=== PATIENT | male | born 1990 | race Caucasian/White ===

== ENCOUNTER 2024-11-03 02:26 | Inpatient (IN) | payer MEDICARE, MEDICAID ==
[~2024-11-03] VITALS: Ht 175.3 cm; Wt 91.0 kg
[2024-11-03] VITALS (35 sets, daily range): BP systolic 111–146; BP diastolic 72–102; PULSE 80–108; RESP 16–20; TEMP 98.6–100.8; O2SAT 15–100
[~2024-11-03 02:26] MED LIST: ALPR1TAB2 PO; CITA20TA3 PO; DIME240C OR; GLAT20KI SC; HYDR-4833 PO; LORA-655 PO; NAP500T PO
[2024-11-03] MEDS ORDERED: MIDAZOLAM HCL 5 MG/ML-1ML VIAL ONE (02:29)
[2024-11-03] MEDS ORDERED: PROPOFOL 100 ML IV ONE (02:29)
[2024-11-03] MEDS ORDERED: ROCURONIUM 10MG/ML 10ML VIAL IV ONE (02:30)
[2024-11-03] MEDS: PROPOFOL 10 MG/ML 20 ML IV ONE (02:37)
[2024-11-03] MEDS: ROCURONIUM 10MG/ML 10ML VIAL IV ONE (02:38)
[2024-11-03] MEDS: PROPOFOL 100 ML IV SCH (03:00)
[2024-11-03] MEDS: MIDAZOLAM HCL 5 MG/ML-1ML VIAL IV ONE ×2 (03:00→03:55)
[2024-11-03] MEDS: levETIRAcetam 1000 mg/100ml 100 ML IV ONE ×2 (03:00)
--- NOTE | 2024-11-03 03:02 | ED.PDOC ---
Altered Mental Status HPI Comments 34-year-old male with PMHx Seizures brought in by EMS presents s/p seizure activity with an ALOC. Per EMS, patient has been out of seizure medication for the past x 3 days and had a tonic clonic seizure that lasted 10 minutes. EMS gave Versed 10mg IV and then patient had an additional seizure and was given another 10mg Versed IV. Patient arrived to the ER and had a third seizure and was given another 10mg of Versed. Patient has blood coming from his mouth due to oral trauma of biting his tongue. Patient was subsequently intubated with Propofol and Rocuronium. Blood sugar at bedside was 128. Patient was also incontinent to urine. No other symptoms or modifying factors present at this time. Chief Complaint: Seizure Time Seen by MD: 02:35 Primary Care Provider: TAWNY Reviewed Notes: Loss Prevention Research Engineer Notes, Medications, Allergies Allergies: Coded Allergies: NO KNOWN ALLERGIES (Unverified , 02/20/12) Home Meds Active Scripts Glatiramer Acetate (Copaxone) 20 Mg/Ml Kit, 20 MG SC DAILY, #1 Prov:TUAN REVELES MD 08/21/13 Citalopram Hydrobromide (CeleXA TABLET) 20 Mg Tb, 20 MG PO DAILY, #1 Prov:TUAN REVELES MD 08/21/13 Naproxen (NAPROSYN TABLET) 500 Mg Tb, 500 MG PO BIDP, #1 Prov:TUAN REVELES MD 08/21/13 Reported Medications Dimethyl Fumarate (TECFIDERA) 240 Mg Cap, 240 MG OR BID, CAP 04/20/15 Alprazolam (Xanax) 1 Mg Tab, 1 MG PO BIDP, #1 08/21/13 Hydrocodone-Acetaminophen (Alex 5/325MG) 1 Tab Tb, 1 TAB PO Q6HP 08/21/13 Lorazepam (Ativan) 0.5 Mg Tab, 0.5 MG PO DAILY 08/16/13 Information Source: Emergency Med Personnel Mode of Arrival: EMS Severity: Severe Timing: Minutes Duration: Since onset Prehospital treatment: Treatment (VERSED 10mg IV x 2) Quality: Decreased Alertness Recent: Other (SEIZURE) History of: Seizure Associated Signs and Symptoms: Seizure Past Medical History PAST MEDICAL HISTORY: Anxiety, Depression, Seizures Surgical History: Denies all surgeries Family History Family History: No family hx of HTN Family History (Other): Sister: Bipolar Maternal Grandmother: Polio Social History Smoker: Non-Smoker Alcohol: Occasionally Drugs: Marijuana Lives In: Home Constitutional: denies: chills, diaphoresis, fatigue, fever, malaise, sweats, weakness, others EENTM: denies: blurred vision, double vision, ear bleeding, ear discharge, ear drainage, ear pain, ear ringing, eye pain, eye redness, hearing loss, mouth pain, mouth swelling, nasal discharge, nose bleeding, nose congestion, nose pain, photophobia, tearing, throat pain, throat swelling, voice changes, others Respiratory: denies: cough, hemoptysis, orthopnea, SOB at rest, shortness of breath, SOB with excertion, stridor, wheezing, others Gastrointestinal: denies: abdomen distended, abdominal pain, blood streaked bowels, constipated, diarrhea, dysphagia, difficulty swallowing, hematemesis, melena, nausea, poor appetite, poor fluid intake, rectal bleeding, rectal pain, vomiting, others Genitourinary: denies: burning, dysuria, flank pain, frequency, hematuria, incontinence, penile discharge, penile sore, pain, testicle pain, testicle swelling, urgency, others Neurological: reports: seizure; denies: dizziness, fainting, headache, left sided numbness, left sided weakness, numbness, paresthesia, pre-existing deficit, right sided numbness, right sided weakness, speech problems, tingling, tremors, weakness, others Musculoskeletal: denies: back pain, gout, joint pain, joint swelling, muscle pain, muscle stiffness, neck pain, others Integumetry: denies: bruises, change in color, change in hair/nails, dryness, laceration, lesions, lumps, rash, wounds, others Allergic/Immunocompromised: denies: Difficulty Healing, Frequent Infections, Hives, Itching, others Hematologic/Lymphatic: denies: anemia, blood clots, easy bleeding, easy bruising, swollen glands, others Endocrine: denies: excessive hunger, excessive sweating, excessive thirst, excessive urination, flushing, intolerance to cold, intolerance to heat, unexplained weight gain, unexplained weight loss, others Psychiatric: denies: anxiety, bipolar disorder, depression, hopeless, panic disorder, schizophrenia, sleepless, suicidal, others Unable to Obtain due to: Altered Mental Status All Other Systems: Reviewed and Negative Physical Exam General Appearance: Moderate Distress, Normal HEENT: NOT DONE Neck: NOT DONE Respiratory: Chest Non-Tender, Lungs Clear, No Accessory Muscle Use, No Respiratory Distress, Normal Breath Sounds Cardiovascular: No Edema, No JVD, No Murmur, No Gallop, Normal Peripheral Pulses, Regular Rate/Rhythm Breast Exam: Deferred Gastrointestinal: No Organomegaly, Non Tender, No Pulsatile Mass, Normal Bowel Sounds, Soft Genitalia: Deferred Pelvic: Deferred Rectal: Deferred Extremities: No calf tenderness, Normal capillary refill, Normal inspection, Normal range of motion, Non-tender, No pedal edema Musculoskeletal : Apperance: Normal Neurologic: mysql developer II-XII nml as Tested, Other (POSTICTAL) Cerebellar Function: Normal Reflexes: Normal Skin: Dry, Normal Color, Warm Lymphatic: No Adenopathy Was a procedure done? Was a procedure done?: Yes Sedation Sedation?: Yes Informed consent obtained: No Sedation start time: 02:40 Sedation end time: 02:41 Sedation total time: 1 minute Central Line Recorder of insertion practice: Observer Occupation of slot tag inserter: Attending Physician Indication: Volume resuscitation Room prepared for procedure: Yes Scout performed hand hygien: Yes Maximal sterile barrier precau: Mask/Eye shield, Sterile gown, Cap, Sterlie gloves, Large sterlie drape Skin Preparation: Chlorhexidine gluconate Skin preparation completely dr: Yes Insertion site: Right, Femoral Central line catheter type: [id number] dialysis Number of lumens: 3 Post Assessment: Proper placement Informed consent obtained: No Risks/benefits/alt described: No Notes PATIENT SEDATED Intubation Indication: Altered Mental Status Prep: Preoxygenation Pretreated with: Sedation Medicated with: Other (PROPOFOL and ROCRUONIUM) Intubation Approach: Orotracheal Intubation size: cm (25) Informed consent obtained: No Risks/benefits/alt described: No Differential Diagnosis (ALOC) Differential Diagnosis: Dehydration, Hypoglycemia, DKA, Encephalopathy, Meningitis, Sepsis, Hypoxemia, Seizure X-Ray, Labs, Meds, VS Vital Signs Date Time Temp Pulse Resp B/P (MAP) Pulse Ox O2 Delivery O2 Flow Rate FiO2 11/03/24 04:00 96/57 11/03/24 04:00 96/57 11/03/24 03:00 91/67 11/03/24 02:51 118 16 113/68 (83) 100 100 11/03/24 02:41 98.7 112 20 173/119 (137) 98 11/03/24 02:40 99.1 108 20 113/68 (83) 100 99.1 11/03/24 02:40 108 20 15 Mechanical Ventilator+ 15 100 100 11/03/24 02:38 113/68 Lab Test 11/03/24 03:00 11/03/24 02:58 11/03/24 02:55 Range/Units Urine Color Light-yellow Yellow Urine Clarity Clear Clear Urine pH 5.5 5.0-9.0 Urine Specific [place] 1.020 1.001-1.035 Urine Protein 1+ H Negative Urine Ketones 1+ H Negative Urine Blood Trace H Negative /uL Urine Nitrite Negative Negative Urine Bilirubin Negative Negative Urine Urobilinogen Normal Negative mg/dL Urine Leukocyte Esterase Negative Negative /uL Urine RBC 3 0 - 3 /hpf Urine WBC 2 0 - 3 /hpf Urine Squamous Epithelial Cells None seen <5 /hpf Urine Amorphous Crystals Few None Seen /hpf Urine Bacteria None seen None Seen /hpf Urine Glucose Normal Normal mg/dL Urine Opiates Screen Neg NEGATIVE Urine Fentanyl Screen Pending Urine Barbiturates Screen Neg NEGATIVE Urine Phencyclidine Screen Neg NEGATIVE Urine Amphetamines Screen Neg NEGATIVE Urine Benzodiazepines Screen Pos NEGATIVE Urine Cocaine Screen Neg NEGATIVE Urine Cannabinoids Screen Pos NEGATIVE Blood Gas Specimen Type Arterial Blood Gas Sample Site Left radial Blood Gas Patient Temperature 37.0 Arterial Blood Date Drawn [id number] Arterial Blood pH 7.280 L 7.350-7.450 Arterial Blood Partial Pressure CO2 48.1 H 35.0-48.0 mmHg Arterial Blood Partial Pressure O2 399.3 *H 83.0-108.0 mmHg Arterial Blood HCO3 22.1 21.0-28.0 mmol/L Arterial Blood Oxygen Saturation 99.9 H 94.0-98.0 % Arterial Blood Base Excess -4.9 L -2.0-3.0 mmol/L Arterial Blood Oxyhemoglobin 97.4 94.0-98.0 % Arterial Blood Carboxyhemoglobin 1.7 H 0.5-1.5 % Arterial Blood Methemoglobin 0.8 0.0-1.5 % Jeison Test Yes Blood Gas Total Hemoglobin 15.90 13.5-17.5 g/dL Blood Gas Set Respiration Rate 16.0 Blood Gas Modality Vent - ac Blood Gas Spontaneous Rate 16 FiO2 % 100.0 Blood Gas Tidal Volume 500.0 Blood Gas PEEP or CPAP 5.0 Blood Gas Critical Value Read Back yes Blood Gas Notified Whom md daniel goss Blood Gas Notified Time [id number] Blood Gas Notified By equipment sterilizer angelica cooper White Blood Count 6.1 4.4-10.8 10^3/uL Red Blood Count 4.87 4.5-5.90 10^6/uL Hemoglobin 15.3 13.5-17.5 g/dL Hematocrit 44.5 41.0-53.0 % Mean Corpuscular Volume 91.5 80.0-100.0 fL Mean Corpuscular Hemoglobin 31.5 28.0-32.0 pg Mean Corpuscular Hemoglobin Concent 34.4 32.0-36.0 g/dL Red Cell Distribution Width 13.8 11.8-14.3 % Platelet Count 207 140-450 10^3/uL Mean Platelet Volume 7.2 6.9-10.8 fL Neutrophils (%) (Auto) 55.8 37.0-80.0 % Lymphocytes (%) (Auto) 35.2 10.0-50.0 % Monocytes (%) (Auto) 5.7 0.0-12.0 % Eosinophils (%) (Auto) 2.8 0.0-7.0 % Basophils (%) (Auto) 0.5 0.0-2.0 % Neutrophils # (Auto) 3.4 1.6-8.6 10 ^3/uL Lymphocytes # (Auto) 2.1 0.4-5.4 10 ^3/uL Monocytes # (Auto) 0.3 0-1.3 10 ^3/uL Eosinophils # (Auto) 0.2 0-0.8 10 ^3/uL Basophils # (Auto) 0 0-0.2 10 ^3/uL Nucleated Red Blood Cells 0.1 % Sodium Level 145 136-145 mmol/L Potassium Level 3.7 3.5-5.1 mmol/L Chloride Level 110 H 98-107 mmol/L Carbon Dioxide Level 24 20-31 mmol/L Anion Gap 11 5-15 Blood Urea Nitrogen Pending Creatinine 0.92 0.700-1.30 mg/dL Glomerular Filtration Rate Calc 113 >90 mL/min BUN/Creatinine Ratio Pending Serum Glucose 134 H 74-106 mg/dL Lactic Acid Level 5.9 *H 0.4-2.0 mmol/L Calcium Level 9.2 8.7-10.4 mg/dL Total Bilirubin 0.4 0.2-1.0 mg/dL Aspartate Amino Transferase (AST) 11 L 13-40 U/L Alanine Aminotransferase (ALT) 14 7-40 U/L Alkaline Phosphatase 49 46-116 U/L Total Protein 6.2 5.7-8.2 g/dL Albumin 4.1 3.2-4.8 g/dL Current Medications Medications (Trade) Dose Ordered Sig/Lainey Route Start Time Stop Time Status Last Admin Rocuronium [place] 100 mg ONCE ONCE IV 11/03/24 03:00 11/03/24 03:01 [place] 11/03/24 02:38 Midazolam HCl (Versed Injection) 10 mg ONCE ONCE IV 11/03/24 03:00 11/03/24 03:01 DC 11/03/24 03:00 Levetiracetam 100 ml @ 400 mls/hr ONCE ONCE IV 11/03/24 03:00 11/03/24 03:14 DC 11/03/24 03:00 Levetiracetam 100 ml @ 400 mls/hr ONCE ONCE IV 11/03/24 03:00 11/03/24 03:14 DC 11/03/24 03:00 Propofol 100 ml @ 2.451 mls/ hr Q24H IV 11/03/24 03:00 11/03/24 03:00 Midazolam HCl (Versed Injection) 10 mg ONCE ONCE IV 11/03/24 04:00 11/03/24 04:01 [place] 11/03/24 03:55 Midazolam HCl 50 ml @ 1 mls/hr Q24H IV 11/03/24 04:00 11/03/24 04:00 Propofol (Diprivan) 100 mg ONCE ONCE IV 11/03/24 02:30 11/03/24 04:03 DC 11/03/24 02:37 Time of 1ST Reevaluation: 03:05 Reevaluation 1ST: Unchanged Patient Education/Counseling: Pt Unresponsive (SEDATED) Family Education/Counseling: No Family Present Departure 1 Departure Time of Disposition: 04:37 (Patient presented in status epilepticus. He was intubated for airway protection. Central line was placed for multiple medication administration. Patient received Keppra, Versed, propofol patient was still seizing. Starting IV phenytoin. We will admit patient to ICU for expert consultation with Neurology as well) Impression: Primary Impression: Status epilepticus Disposition: 09 ADMITTED INPATIENT Admit to: ICU Condition: Critical Critical Care Note Critical Care Time?: Yes Critical care comment: Status epilepticus Authorized and Performed by: Kyrie Goss MD Total critical care time: Approximately 82 minutes Due to a high probability of clinically significant, life threatening deterioration, the patient required my highest level of preparedness to intervene emergently and I personally spent this critical care time directly and personally managing the patient. This critical care time included obtaining a history; examining the patient; pulse oximetry; ordering and review of studies; arranging urgent treatment with development of a management plan; evaluation of patient's response to treatment; frequent reassessment; and, discussions with other providers. This critical care time was performed to assess and manage the high probability of imminent, life-threatening deterioration that could result in multi-organ failure. It was exclusive of separately billable procedures and treating other patients and teaching time. Please see my other sections and the rest of the note for further information on patient assessment and treatment. Stability Stability form required: No I personally scribed for KYRIE GOSS MD ([email or web address]) on 11/03/24 at 03:02. Electronically submitted by Royal Regalado ([email or web address]). KYRIE GOSS MD Nov 03, 2024 03:02
[2024-11-03 03:21] LABS: Urine Bacteria None Seen /hpf (None Seen)
[2024-11-03 03:25] LABS: Basophils # (auto) 0 10 ^3/uL (0-0.2); Basophils % (auto) 0.5 % (0.0-2.0); Eosinophils # (auto) 0.2 10 ^3/uL (0-0.8); Eosinophils % (auto) 2.8 % (0.0-7.0); Hematocrit 44.5 % (41.0-53.0); Hemoglobin 15.3 g/dL (13.5-17.5); Lymphocytes # (auto) 2.1 10 ^3/uL (0.4-5.4); Lymphocytes % (auto) 35.2 % (10.0-50.0); Mean Corpuscular Hemoglobin 31.5 pg (28.0-32.0); Mean Corpuscular Hgb Conc. 34.4 g/dL (32.0-36.0); Mean Corpuscular Volume 91.5 fL (80.0-100.0); Monocytes # (auto) 0.3 10 ^3/uL (0-1.3); Monocytes % (auto) 5.7 % (0.0-12.0); Neutrophils # (auto) 3.4 10 ^3/uL (1.6-8.6); Neutrophils % (auto) 55.8 % (37.0-80.0); Nucleated Red Blood Cells % 0.1 %; Platelet Count (auto) 207 10^3/uL (140-450); Red Blood Cells 4.87 10^6/uL (4.5-5.90); Red Cell Distribution Width 13.8 % (11.8-14.3); White Blood Cell 6.1 10^3/uL (4.4-10.8)
--- NOTE | 2024-11-03 03:29 | DVH ---
Examination: CXR1 Clinical Indication: Post Intubation tube placement (OG and ETT) Comparison: None. Technique: Frontal radiograph of the chest was obtained. Findings: Endotracheal tube noted with its distal end located approximately 4.8 cm proximal to the madelaine in ap propriate position. Nasogastric tube noted with its distal end below left hemidiaphragm, possibly in stomach, however, th e tip is out of field of view. If more precise position of tube is required, suggest x-ray abdomen p re and post injection of 200 cc of air or 60 ml of gastrografin. Lungs are clear and well expanded with no pulmonary infiltrate or pleural effusion. There is no pneumothorax. The cardiomediastinal silhouette is within normal limits. No acute osseous abnormality is seen. Impression: 1. No acute cardiopulmonary disease is seen. 2. Endotracheal tube noted with its distal end located approximately 4.8 cm proximal to the madelaine i n appropriate position. 3. Nasogastric tube noted with its distal end below left hemidiaphragm, possibly in stomach, however , the tip is out of field of view. If more precise position of tube is required, suggest x-ray abdom en pre and post injection of 200 cc of air or 60ml of gastrografin. Electronically Signed 11/03/2024 03:28 Nicolas Barnes
[2024-11-03 03:43] LABS: Alanine Aminotransferase 14 U/L (7-40); Albumin 4.1 g/dL (3.2-4.8); Alkaline Phosphatase 49 U/L (46-116); Anion Gap 11 (5-15); Calcium 9.2 mg/dL (8.7-10.4); Carbon Dioxide 24 mmol/L (20-31); Potassium 3.7 mmol/L (3.5-5.1); Sodium 145 mmol/L (136-145)
[2024-11-03 03:44] LABS: Bilirubin, Total 0.4 mg/dL (0.2-1.0); Total Protein 6.2 g/dL (5.7-8.2)
[2024-11-03 03:47] LABS: Chloride 110 mmol/L (98-107); Glucose 134 mg/dL (74-106)
[2024-11-03 03:48] LABS: Aspartate Aminotransferase 11 U/L (13-40)
[2024-11-03 03:52] LABS: Base Excess -4.9 mmol/L (-2.0-3.0)
[2024-11-03 03:54] LABS: Amphetamine Screen, Urine Neg (NEGATIVE); Barbiturate Scree,Urine Neg (NEGATIVE); Benzodiazephine Screen, Urine Pos (NEGATIVE); Cannabinoid Screen, Urine Pos (NEGATIVE); Cocaine Screen, Urine Neg (NEGATIVE); Opiate Scree,Urine Neg (NEGATIVE); Phencyclidine Screen, Urine Neg (NEGATIVE)
[2024-11-03] MEDS: MIDAZOLAM DRIP 50 mg/50mL 50 ML IV ONE (04:00)
[2024-11-03] MEDS: MIDAZOLAM DRIP 50 mg/50mL 50 ML IV SCH (04:00)
[2024-11-03 04:09] LABS: Urine Amorphous Crystal FEW /hpf (None Seen); Urine Blood TRACE /uL (Negative); Urine Clarity Clear (Clear); Urine Color Light-Yellow (Yellow); Urine Protein, UAD 1+ (Negative); Urine Urobilinogen Normal (Negative); Urine WBC 2 /hpf (0 - 3); Urine pH 5.5 (5.0-9.0)
[2024-11-03] MEDS: PHENYTOIN IV DILANTIN 1,500 MG in SODIUM CHL 0.9% 250 ML IV ONE (04:30)
[2024-11-03 04:34] LABS: Lactic Acid w/Reflex 5.9 mmol/L (0.4-2.0)
[2024-11-03 04:49] LABS: BUN/Creatinine Ratio 16.3 (10.0-20.0); Blood Urea Nitrogen 15 mg/dL (9-23)
--- NOTE | 2024-11-03 04:57 | DVHHP2 ---
History of Present Illness Reason for Visit: Seizure activity History of Present Illness 34-year-old male presents for evaluation of seizure activity. Patient presents with complaints of LOC. Patient has been having intermittent episodes of seizures today. He has been out of his seizure medication for the past three days. On arrival patient was emergently intubated for airway protection due to status epilepticus. Past Medical History Seizure and depression Past Surgical History Denies Family History Noncontributory Smoke: No ALCOHOL: none Drugs: None Review of Systems Review of Systems Unable to complete review of systems patient is sedated and intubated. Allergies: Coded Allergies: NO KNOWN ALLERGIES (Unverified , 02/20/12) Medications Current Medications Medications Dose Ordered Sig/Lainey Route Start Time Stop Time Status Last Admin Dose Admin Propofol 100 ml @ 2.451 mls/ hr Q24H IV 11/03/24 03:00 11/03/24 03:00 9.804 MLS/HR Midazolam HCl 50 ml @ 1 mls/hr Q24H IV 11/03/24 04:00 11/03/24 04:00 1 MLS/HR Exam Vital Signs Vital Signs Date Time Temp Pulse Resp B/P (MAP) Pulse Ox O2 Delivery O2 Flow Rate FiO2 11/03/24 04:33 119 16 120/100 (107) 100 40 11/03/24 02:41 98.7 11/03/24 02:40 Mechanical Ventilator+ 15 Exam Gen: 34-year-old male mild distress Skin: Warm, dry, normal color and texture, no rash. HEENT: Normocephalic atraumatic, mucous membranes moist and pink. Neck: Cervical and supraclavicular nodes normal without enlargement, trachea is midline, thyroid gland is normal without masses. Pulmonary: Intubated, diminished breath sounds bilaterally Cardiac: Regular rate and rhythm. No murmur Abdomen: Soft, nontender, nondistended, bowel sounds present all 4 quadrants, no guarding, no rigidity, no organomegaly. Extremities: No cyanosis, clubbing, no edema Neuro: Sedated Labs/Xrays ORDERING PHYSICIAN: KYRIE GOSS MD PROCEDURE(s): CXR1 - CHEST XRAY 1 VIEW REASON: Post Intubation tube placement (OG and ETT) ORDER NUMBER(s): [id number], ACCESSION NUMBER(s): [id number] Examination: CXR1 Clinical Indication: Post Intubation tube placement (OG and ETT) Comparison: None. Technique: Frontal radiograph of the chest was obtained. Findings: Endotracheal tube noted with its distal end located approximately 4.8 cm proximal to the madelaine in appropriate position. Nasogastric tube noted with its distal end below left hemidiaphragm, possibly in stomach, however, the tip is out of field of view. If more precise position of tube is required, suggest x-ray abdomen pre and post injection of 200 cc of air or 60 ml of gastrografin. Lungs are clear and well expanded with no pulmonary infiltrate or pleural effusion. There is no pneumothorax. The cardiomediastinal silhouette is within normal limits. No acute osseous abnormality is seen. Impression: 1. No acute cardiopulmonary disease is seen. 2. Endotracheal tube noted with its distal end located approximately 4.8 cm proximal to the madelaine in appropriate position. 3. Nasogastric tube noted with its distal end below left hemidiaphragm, possibly in stomach, however, the tip is out of field of view. If more precise position of tube is required, suggest x-ray abdomen pre and post injection of 200 cc of air or 60ml of gastrografin. Electronically Signed 11/03/2024 03:28 Nicolas Barnes Labs Test 11/03/24 03:00 11/03/24 02:58 11/03/24 02:55 Range/Units Urine Color Light-yellow Yellow Urine Clarity Clear Clear Urine pH 5.5 5.0-9.0 Urine Specific [place] 1.020 1.001-1.035 Urine Protein 1+ H Negative Urine Ketones 1+ H Negative Urine Blood Trace H Negative /uL Urine Nitrite Negative Negative Urine Bilirubin Negative Negative Urine Urobilinogen Normal Negative mg/dL Urine Leukocyte Esterase Negative Negative /uL Urine RBC 3 0 - 3 /hpf Urine WBC 2 0 - 3 /hpf Urine Squamous Epithelial Cells None seen <5 /hpf Urine Amorphous Crystals Few None Seen /hpf Urine Bacteria None seen None Seen /hpf Urine Glucose Normal Normal mg/dL Urine Opiates Screen Neg NEGATIVE Urine Barbiturates Screen Neg NEGATIVE Urine Phencyclidine Screen Neg NEGATIVE Urine Amphetamines Screen Neg NEGATIVE Urine Benzodiazepines Screen Pos NEGATIVE Urine Cocaine Screen Neg NEGATIVE Urine Cannabinoids Screen Pos NEGATIVE Blood Gas Specimen Type Arterial Blood Gas Sample Site Left radial Blood Gas Patient Temperature 37.0 Arterial Blood Date Drawn [id number] Arterial Blood pH 7.280 L 7.350-7.450 Arterial Blood Partial Pressure CO2 48.1 H 35.0-48.0 mmHg Arterial Blood Partial Pressure O2 399.3 *H 83.0-108.0 mmHg Arterial Blood HCO3 22.1 21.0-28.0 mmol/L Arterial Blood Oxygen Saturation 99.9 H 94.0-98.0 % Arterial Blood Base Excess -4.9 L -2.0-3.0 mmol/L Arterial Blood Oxyhemoglobin 97.4 94.0-98.0 % Arterial Blood Carboxyhemoglobin 1.7 H 0.5-1.5 % Arterial Blood Methemoglobin 0.8 0.0-1.5 % Jeison Test Yes Blood Gas Total Hemoglobin 15.90 13.5-17.5 g/dL Blood Gas Set Respiration Rate 16.0 Blood Gas Modality Vent - ac Blood Gas Spontaneous Rate 16 FiO2 % 100.0 Blood Gas Tidal Volume 500.0 Blood Gas PEEP or CPAP 5.0 Blood Gas Critical Value Read Back yes Blood Gas Notified Whom md daniel goss Blood Gas Notified Time [id number] Blood Gas Notified By utility division project manager angelica cooper White Blood Count 6.1 4.4-10.8 10^3/uL Red Blood Count 4.87 4.5-5.90 10^6/uL Hemoglobin 15.3 13.5-17.5 g/dL Hematocrit 44.5 41.0-53.0 % Mean Corpuscular Volume 91.5 80.0-100.0 fL Mean Corpuscular Hemoglobin 31.5 28.0-32.0 pg Mean Corpuscular Hemoglobin Concent 34.4 32.0-36.0 g/dL Red Cell Distribution Width 13.8 11.8-14.3 % Platelet Count 207 140-450 10^3/uL Mean Platelet Volume 7.2 6.9-10.8 fL Neutrophils (%) (Auto) 55.8 37.0-80.0 % Lymphocytes (%) (Auto) 35.2 10.0-50.0 % Monocytes (%) (Auto) 5.7 0.0-12.0 % Eosinophils (%) (Auto) 2.8 0.0-7.0 % Basophils (%) (Auto) 0.5 0.0-2.0 % Neutrophils # (Auto) 3.4 1.6-8.6 10 ^3/uL Lymphocytes # (Auto) 2.1 0.4-5.4 10 ^3/uL Monocytes # (Auto) 0.3 0-1.3 10 ^3/uL Eosinophils # (Auto) 0.2 0-0.8 10 ^3/uL Basophils # (Auto) 0 0-0.2 10 ^3/uL Nucleated Red Blood Cells 0.1 % Sodium Level 145 136-145 mmol/L Potassium Level 3.7 3.5-5.1 mmol/L Chloride Level 110 H 98-107 mmol/L Carbon Dioxide Level 24 20-31 mmol/L Anion Gap 11 5-15 Creatinine 0.92 0.700-1.30 mg/dL Glomerular Filtration Rate Calc 113 >90 mL/min Serum Glucose 134 H 74-106 mg/dL Lactic Acid Level 5.9 *H 0.4-2.0 mmol/L Calcium Level 9.2 8.7-10.4 mg/dL Total Bilirubin 0.4 0.2-1.0 mg/dL Aspartate Amino Transferase (AST) 11 L 13-40 U/L Alanine Aminotransferase (ALT) 14 7-40 U/L Alkaline Phosphatase 49 46-116 U/L Total Protein 6.2 5.7-8.2 g/dL Albumin 4.1 3.2-4.8 g/dL Assessment/Plan Assessment/Plan Assessment Status epilepticus Plan Admit the patient to ICU to the hospitalist Nephrology consultation Initial CT of the brain ordered on admission. Pending results. Resume home medications Continue treatment per orders Total critical care time excluding procedures performed this 50 minutes. Plan discussed with: Other My Orders Orders - PANCHO TONY Procedure Category Date Status Time Phenobarbital Sodium PHA 11/03/24 Logged Inj (Phenobarbital) 05:00 Date of Service: Nov 03, 2024 Billing Provider: PANCHO TONY Common Visit Codes: [id number] CARE 30-74 MIN PANCHO TONY Nov 03, 2024 04:57
[2024-11-03] MEDS ORDERED: NITROGLYCERIN 0.4 MG SL TAB SL PRN (05:00)
[2024-11-03] MEDS ORDERED: MORPHINE SULFATE INJ 2 MG/ml SYRG IV PRN (05:00)
[2024-11-03] MEDS ORDERED: ONDANSETRON HCL 4 MG/2 ML VIAL IV PRN (05:00)
[2024-11-03] MEDS: PHENobarbital SODIUM INJ 600 MG in SODIUM CHL 0.9% 100 ML IV ONE (05:20)
[2024-11-03] MEDS: SODIUM CHLORIDE 0.9% 1,000 ML IV ONE (05:30)
[2024-11-03] MEDS: PHENYTOIN SODIUM 50 MG/ML 2ML VIAL IV ONE ×2 (05:30)
--- NOTE | 2024-11-03 06:55 | DVH ---
EXAM: CT HEAD WITHOUT CONTRAST INDICATION: Status epilepticus TECHNIQUE: CT of the head without intravenous contrast. Radiation Dose Information: CT Dose: CTDI volume is 58.5 mGy. Dose-length product is 1152.77 mGy*cm The dose indicators for CT are the volume Computed Tomography (CT) Dose Index (CTDIvol) and the Dose Length Product (DLP), and are measured in units of mGy and mGy-cm, respectively. These indicators are not patient dose, but values generated from the CT scanner acquisition factors. The report includes radiation exposure data for exposures received during this examination. COMPARISON: None FINDINGS: There is no evidence of acute intracranial hemorrhage, extra-axial collection, mass effect, midline s hift, herniation or hydrocephalus. The ventricles, sulci and cisterns are age appropriate. Diffuse cerebral volume loss with bifrontal l obe atrophy. The prather-white differentiation is intact. Patchy periventricular and subcortical white matter hypoattenuation is nonspecific but may be related to small vessel ischemic disease. The visualized paranasal sinuses and mastoid air cells are clear. The surrounding soft tissues and osseous structures are unremarkable. IMPRESSION: No acute intracranial abnormality.
[2024-11-03 08:37] LABS: Base Excess 2.7 mmol/L (-2.0-3.0)
[2024-11-03] MEDS: levETIRAcetam 1000 mg/100ml 100 ML IV SCH (09:37)
[2024-11-03] MEDS: ENOXAPARIN SOD 40 MG/0.4 ML SYRINGE SC SCH (09:38)
--- NOTE | 2024-11-03 12:43 | DVHPN2 ---
Reviewed: Care Plan, H&P, Labs, Medications, Previous Orders, Radiology Changes from previous H/P or p: No Changes Objective Vitals Vital Signs Date Time Temp Pulse Resp B/P (MAP) Pulse Ox O2 Delivery O2 Flow Rate FiO2 11/03/24 12:00 99.3 83 16 112/74 (87) 98 99.3 11/03/24 11:45 30 11/03/24 08:00 Mechanical Ventilator+ 11/03/24 02:40 15 Intake/Output Intake and Output 11/03/24 07:00 Intake Total 816.126 ml Balance 816.126 ml Intake IV Total 816.126 ml Medications Current Medications Medications Dose Ordered Sig/Lainey Route Start Time Stop Time Status Last Admin Dose Admin Propofol 100 ml @ 2.451 mls/ hr Q24H IV 11/03/24 03:00 11/03/24 11:13 19.608 MLS/HR Midazolam HCl 50 ml @ 1 mls/hr Q24H IV 11/03/24 04:00 11/03/24 11:12 4 MLS/HR Levetiracetam 100 ml @ 400 mls/hr BID IV 11/03/24 10:00 11/03/24 09:37 400 MLS/HR Ondansetron HCl 4 mg Q4HP PRN IV 11/03/24 05:00 Enoxaparin Sodium 40 mg DAILY SC 11/03/24 10:00 11/03/24 09:38 40 MG Acetaminophen 650 mg Q6HP PRN PO 11/03/24 05:00 Nitroglycerin 0.4 mg Q5MINP PRN SL 11/03/24 05:00 Morphine Sulfate 2 mg Q30M PRN IV 11/03/24 05:00 Albuterol 2.5 mg Q6HPRN PRN NEB 11/03/24 05:00 Laboratory Results Laboratory Tests 11/03/24 02:55 Chemistry Test 11/03/24 02:55 Albumin 4.1 g/dL (3.2-4.8) Calcium Level 9.2 mg/dL (8.7-10.4) Total Protein 6.2 g/dL (5.7-8.2) LFT Test 11/03/24 02:55 Alanine Aminotransferase (ALT) 14 U/L (7-40) Alkaline Phosphatase 49 U/L (46-116) Aspartate Amino Transferase (AST) 11 U/L (13-40) L Total Bilirubin 0.4 mg/dL (0.2-1.0) Urinalysis Test 11/03/24 03:00 Urine Color Light-yellow (Yellow) Urine Clarity Clear (Clear) Urine pH 5.5 (5.0-9.0) Urine Specific [place] 1.020 (1.001-1.035) Urine Protein 1+ (Negative) H Urine Ketones 1+ (Negative) H Urine Blood Trace /uL (Negative) H Urine Nitrite Negative (Negative) Urine Bilirubin Negative (Negative) Urine Urobilinogen Normal mg/dL (Negative) Urine Leukocyte Esterase Negative /uL (Negative) Urine RBC 3 /hpf (0 - 3) Urine WBC 2 /hpf (0 - 3) Urine Squamous Epithelial Cells None seen /hpf (<5) Urine Amorphous Crystals Few /hpf (None Seen) Urine Bacteria None seen /hpf (None Seen) Urine Glucose Normal mg/dL (Normal) Blood Gas Results Test 11/03/24 02:58 11/03/24 08:33 Arterial Blood pH 7.280 (7.350-7.450) 7.446 (7.350-7.450) FiO2 % 100.0 40.0 Labs and/or images reviewed: Labs reviewed by me, Image(s) reviewed by me Assessment/Plan Assessment/Plan Breakthrough seizures: Jero aJcobs urology consult for Dr. Velazco History of seizures Noncompliance CT head negative Time spent 35 minutes Plan discussed with: Patient Date of Service: Nov 03, 2024 Billing Provider: KARI MURILLO MD Common Visit Codes: [id number] INP/OBS CARE(HIGH) KARI MURILLO MD Nov 03, 2024 12:43
[2024-11-03] MEDS: LORazepam 2MG/ML-1ML VIAL IV PRN (15:20)
--- NOTE | 2024-11-03 19:14 | DVHINCON2 ---
Date of service: Nov 03, 2024 Referring Physician Rusty Cain MD Reason for Consultation Acute hypoxic respiratory failure requiring mechanical ventilator History of Present Illness A 34-year-old man with past medical history of MS, seizures, and depression who presents to ED today for evaluation of seizure activity. Patient presents today with complaints of LOC. Patient has been having intermittent episodes of seizures today. States he has been out of his seizure medication for the past 3 days. On arrivalm patient was emergently intubated for airway protection due to status epilepticus. Patient was admitted for further care and pulmonary consultation is requested for evaluation and management of acute hypoxic respiratory failure requiring mechanical ventilator. Review of Systems: 14-point review of systems negative unless otherwise noted above. Past Medical History: Multiple sclerosis, seizures, depression. Past Surgical History: Denies Medications: Reviewed. Allergies: No known drug allergies. Family History: No family history of premature CAD. No family history of lung disorders. Social History: Current smoker. No alcohol or illicit drug use. Family History: Patient reports no known family medical history. Allergies: Coded Allergies: NO KNOWN ALLERGIES (Unverified , 02/20/12) Home Meds Active Scripts Glatiramer Acetate (Copaxone) 20 Mg/Ml Kit, 20 MG SC DAILY, #1 Prov:TUAN REVELES MD 08/21/13 Citalopram Hydrobromide (CeleXA TABLET) 20 Mg Tb, 20 MG PO DAILY, #1 Prov:TUAN REVELES MD 08/21/13 Naproxen (NAPROSYN TABLET) 500 Mg Tb, 500 MG PO BIDP, #1 Prov:TUAN REVELES MD 08/21/13 Reported Medications Dimethyl Fumarate (TECFIDERA) 240 Mg Cap, 240 MG OR BID, CAP 04/20/15 Alprazolam (Xanax) 1 Mg Tab, 1 MG PO BIDP, #1 08/21/13 Hydrocodone-Acetaminophen ([place] 5/325MG) 1 Tab Tb, 1 TAB PO Q6HP 08/21/13 Lorazepam (Ativan) 0.5 Mg Tab, 0.5 MG PO DAILY 08/16/13 Current Medications Current Medications Medications (Trade) Dose Ordered Sig/Lainey Route PRN Reason Start Time Stop Time Status Last Admin Propofol 100 ml @ 2.451 mls/ hr Q24H IV 11/03/24 03:00 11/03/24 11:13 Midazolam HCl 50 ml @ 1 mls/hr Q24H IV 11/03/24 04:00 11/03/24 17:39 Levetiracetam 100 ml @ 400 mls/hr BID IV 11/03/24 10:00 11/03/24 09:37 Ondansetron HCl (Zofran) 4 mg Q4HP PRN IV NAUSEA / VOMITING 11/03/24 05:00 Enoxaparin Sodium (Lovenox) 40 mg DAILY SC 11/03/24 10:00 11/03/24 09:38 Acetaminophen (Tylenol Tablet) 650 mg Q6HP PRN PO PAIN SCALE 1-3 OR TEMP>100.4 11/03/24 05:00 Nitroglycerin (Ntrostat Sublingual) 0.4 mg Q5MINP PRN SL FOR CHEST PAIN 11/03/24 05:00 Morphine Sulfate 2 mg Q30M PRN IV FOR CHEST PAIN 11/03/24 05:00 Albuterol (Ventolin Medneb) 2.5 mg Q6HPRN PRN NEB SHORTNESS OF BREATH 11/03/24 05:00 Lorazepam (Ativan Inj) 1 mg Q5MINP PRN IV SEIZURES 11/03/24 14:00 11/03/24 18:30 Vital Signs Vital Signs Date Time Temp Pulse Resp B/P (MAP) Pulse Ox O2 Delivery O2 Flow Rate FiO2 11/03/24 18:36 93 11/03/24 18:00 99.0 16 121/81 (94) 98 99.0 11/03/24 18:00 Mechanical Ventilator+ 30 30 11/03/24 02:40 15 Physical Exam Gen.: Patient lying in bed in medical ICU. Sedated, intubated on mechanical ventilator. Head: Normocephalic, atraumatic. Eyes: PERRLA. Ears: Normal external anatomy. Throat: Endotracheal tube and orogastric tube in place. Neck: Supple, trachea midline. Chest: Transmitted breath sounds bilaterally. Decreased air entry bilaterally. No wheezing. Bibasilar crackles. Cardiovascular: Positive S1, positive S2. Regular rate and rhythm. Abdomen: Positive bowel sounds in all 4 quadrants. Soft, nontender, nondistended. : Barnard in place. Normal external genitalia. Rectal: Deferred. Skin: Warm, dry. Intact. Extremities: 2+ radial pulses bilaterally. No lower extremity edema. Neuro: Sedated. Labs/Diagnostic Data Labs Test 11/03/24 08:33 11/03/24 07:04 11/03/24 03:00 11/03/24 02:58 Range/Units Blood Gas Specimen Type Arterial Blood Gas Sample Site Right radial Blood Gas Patient Temperature 37.0 Arterial Blood Date Drawn [id number] Arterial Blood pH 7.446 7.350-7.450 Arterial Blood Partial Pressure CO2 40.0 35.0-48.0 mmHg Arterial Blood Partial Pressure O2 111.0 H 83.0-108.0 mmHg Arterial Blood HCO3 26.9 21.0-28.0 mmol/L Arterial Blood Oxygen Saturation 97.5 94.0-98.0 % Arterial Blood Base Excess 2.7 -2.0-3.0 mmol/L Arterial Blood Oxyhemoglobin 95.5 94.0-98.0 % Arterial Blood Carboxyhemoglobin 1.8 H 0.5-1.5 % Arterial Blood Methemoglobin 0.3 0.0-1.5 % Jeison Test Modified Blood Gas Total Hemoglobin 15.90 13.5-17.5 g/dL Blood Gas Set Respiration Rate 16.0 Blood Gas Modality Vent - ac FiO2 % 40.0 Blood Gas Tidal Volume 500.0 Blood Gas PEEP or CPAP 5.0 Lactic Acid Level 1.6 0.4-2.0 mmol/L Urine Color Light-yellow Yellow Urine Clarity Clear Clear Urine pH 5.5 5.0-9.0 Urine Specific [place] 1.020 1.001-1.035 Urine Protein 1+ H Negative Urine Ketones 1+ H Negative Urine Blood Trace H Negative /uL Urine Nitrite Negative Negative Urine Bilirubin Negative Negative Urine Urobilinogen Normal Negative mg/dL Urine Leukocyte Esterase Negative Negative /uL Urine RBC 3 0 - 3 /hpf Urine WBC 2 0 - 3 /hpf Urine Squamous Epithelial Cells None seen <5 /hpf Urine Amorphous Crystals Few None Seen /hpf Urine Bacteria None seen None Seen /hpf Urine Glucose Normal Normal mg/dL Urine Opiates Screen Neg NEGATIVE Urine Fentanyl Screen Neg NEGATIVE Urine Barbiturates Screen Neg NEGATIVE Urine Phencyclidine Screen Neg NEGATIVE Urine Amphetamines Screen Neg NEGATIVE Urine Benzodiazepines Screen Pos NEGATIVE Urine Cocaine Screen Neg NEGATIVE Urine Cannabinoids Screen Pos NEGATIVE Blood Gas Spontaneous Rate 16 Blood Gas Critical Value Read Back yes Blood Gas Notified Whom md daniel goss Blood Gas Notified Time [id number] Blood Gas Notified By sara Polanco 11/03/24 02:55 Range/Units White Blood Count 6.1 4.4-10.8 10^3/uL Red Blood Count 4.87 4.5-5.90 10^6/uL Hemoglobin 15.3 13.5-17.5 g/dL Hematocrit 44.5 41.0-53.0 % Mean Corpuscular Volume 91.5 80.0-100.0 fL Mean Corpuscular Hemoglobin 31.5 28.0-32.0 pg Mean Corpuscular Hemoglobin Concent 34.4 32.0-36.0 g/dL Red Cell Distribution Width 13.8 11.8-14.3 % Platelet Count 207 140-450 10^3/uL Mean Platelet Volume 7.2 6.9-10.8 fL Neutrophils (%) (Auto) 55.8 37.0-80.0 % Lymphocytes (%) (Auto) 35.2 10.0-50.0 % Monocytes (%) (Auto) 5.7 0.0-12.0 % Eosinophils (%) (Auto) 2.8 0.0-7.0 % Basophils (%) (Auto) 0.5 0.0-2.0 % Neutrophils # (Auto) 3.4 1.6-8.6 10 ^3/uL Lymphocytes # (Auto) 2.1 0.4-5.4 10 ^3/uL Monocytes # (Auto) 0.3 0-1.3 10 ^3/uL Eosinophils # (Auto) 0.2 0-0.8 10 ^3/uL Basophils # (Auto) 0 0-0.2 10 ^3/uL Nucleated Red Blood Cells 0.1 % Sodium Level 145 136-145 mmol/L Potassium Level 3.7 3.5-5.1 mmol/L Chloride Level 110 H 98-107 mmol/L Carbon Dioxide Level 24 20-31 mmol/L Anion Gap 11 5-15 Blood Urea Nitrogen 15 9-23 mg/dL Creatinine 0.92 0.700-1.30 mg/dL Glomerular Filtration Rate Calc 113 >90 mL/min BUN/Creatinine Ratio 16.3 10.0-20.0 Serum Glucose 134 H 74-106 mg/dL Calcium Level 9.2 8.7-10.4 mg/dL Total Bilirubin 0.4 0.2-1.0 mg/dL Aspartate Amino Transferase (AST) 11 L 13-40 U/L Alanine Aminotransferase (ALT) 14 7-40 U/L Alkaline Phosphatase 49 46-116 U/L Total Protein 6.2 5.7-8.2 g/dL Albumin 4.1 3.2-4.8 g/dL Assessment Impression: Acute hypoxic respiratory failure On mechanical ventilator Status epilepticus Multiple sclerosis Nicotine dependence Pneumonia, gram negative, klebsiella pneumonia Plan: s/p intubation on mechanical ventilator. CXR image and report reviewed. Devices in place. No acute cardiopulmonary disease. ABG reviewed, compensated. Head CT showed no acute intracranial abnormalities Antiseizure medications - Keppra. Obtain Neurology consult. On AC mode; RR 16, VT 500, PEEP 5, FiO2 30%. Titrate FIO2 to keep O2 saturation above 90%. VAP bundle. Daily ABG and CXR while intubated Sedate for ventilator synchrony - Versed, Propofol drips. Start pressors if necessary to maintain a mean arterial blood pressure greater than 65 mmHg. IV fluids with NS 100 ml/hr. F/u Nephrology recommendations Monitor renal function Monitor electrolytes. Supplement as necessary. Monitor ins and outs. Smoking cessation discussed for greater than 10 minutes DVT prophylaxis - Lovenox SC. Prognosis: Poor given patient's multiple co-morbidities. Condition: Critical Rest of plan per hospitalist and other consultants. A total of 36 minutes of critical care time was spent reviewing the patient record, examining the patient, making a diagnostic and therapeutic plan, discussing this plan with the medical personnel, following up on diagnostic studies and following the patient for clinical stability excluding any and all procedures. At least 50% of this time was spent in direct, [id number] contact. Thank you Dr. Rusty Cain MD, for allowing me to participate in this patient's care. Further recommendations will depend on the patient's clinical course. Please do not hesitate to contact me if you have any questions or concerns. This medical document was created using an electronic medical record system with [employer] system. Although these documentations are being carefully reviewed, there may still be some phonetic and typographical changes. The errors are purely typographical, due to imperfection on the software program, and do not reflect any compromise in the patient's medical care. Plan discussed with: Spouse (Sister), Other (XANDER Soni/MD Cain) ALICE BLAKELY MD Nov 03, 2024 19:14
[2024-11-03] MEDS: ACETAMINOPHEN 325 MG TAB PO PRN (21:43)
--- NOTE | 2024-11-03 22:02 | DVHINCON2 ---
Date of service: Nov 03, [address] 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 He was brought to the [facility] on 11/03/2024 for seizure activity. At this time, he is slight responds to stroke painful stimuli, sedated, intubated, the history is obtained from his sister, and chart review, talking to his nurse I saw him in 07/2013, 10/2013, 10/2014 for MS exacerbation and he received IV Solu-Medrol. I saw her on 04/22/2051 for medication reaction/MS exacerbation On 11/03/2024, the patient has had witnessed generalized tonic-clonic activity with company nonresponsiveness, bleeding from the mouth and nose for about 10 minutes, and he keeps having mild jerking movement after he arrived to the ER. He has had seizure disorder since 2012, in that he was spells event where his whole-body becomes stiff with loss of consciousness. The patient was is seen by a local neurologist, and he is on Keppra 1000 mg b.i.d. with the last seizure two years ago, but for some reason, he was run out his seizure medication since 10/30/24 He was multiple sclerosis and the MS symptoms started in May 2013, which causes leg weakness, slurred speech, blurry vision, bladder control difficulty, his sister is not aware of the last MS exacerbation, but she reports the patient had walking difficulty since 11/02/2024 He was on Copaxone 40 mg subQ 3 times weekly for MS, his last MR brain with with the contrast, MRI spine with with contrast was about six months ago [phone] Urinalysis, 11/03/2024: Unremarkable UDS, 11/03/2024: Benzo, cannabinoids ABG, 11/03/2024: Respiratory acidosis CBC, 11/03/2024: Unremarkable CMP, 5 11/03/2024: Unremarkable Lactic acid, 11/03/2024: 5.9 CT HEAD, 11/03/2024: No acute intracranial abnormality. MRi HEADACHE, 08/18/2013: Numerous patchy white matter signal abnormalities. Given the clinical history, this is suspicious for multiple sclerosis. Other causes of demyelination cannot be excluded MRI brain w 08/18/13: No enhancing lesions are seen. No evidence of mass MRA brain scan, 08/18/13: Unremarkable MRA of the brain. Past Medical History Anxiety, Matute's palsy Past Surgical History Arm fracture repair Family History: Patient reports no known family medical history. Family History Grandmother had lupus. Bipolar. No multiple sclerosis or other major medical problems Social History He smokes, he denied a history of alcohol or recreational substance abuse Allergies: Coded Allergies: NO KNOWN ALLERGIES (Unverified , 02/20/12) Home Meds Active Scripts Glatiramer Acetate (Copaxone) 20 Mg/Ml Kit, 20 MG SC DAILY, #1 Prov:TUAN REVELES MD 08/21/13 Citalopram Hydrobromide (CeleXA TABLET) 20 Mg Tb, 20 MG PO DAILY, #1 Prov:TUAN REVELES MD 08/21/13 Naproxen (NAPROSYN TABLET) 500 Mg Tb, 500 MG PO BIDP, #1 Prov:TUAN REVELES MD 08/21/13 Reported Medications Dimethyl Fumarate (TECFIDERA) 240 Mg Cap, 240 MG OR BID, CAP 04/20/15 Alprazolam (Xanax) 1 Mg Tab, 1 MG PO BIDP, #1 08/21/13 Hydrocodone-Acetaminophen ([place] 5/325MG) 1 Tab Tb, 1 TAB PO Q6HP 08/21/13 Lorazepam (Ativan) 0.5 Mg Tab, 0.5 MG PO DAILY 08/16/13 Current Medications Current Medications Medications (Trade) Dose Ordered Sig/Lainey Route PRN Reason Start Time Stop Time Status Last Admin Propofol 100 ml @ 2.451 mls/ hr Q24H IV 11/03/24 03:00 11/03/24 11:13 Midazolam HCl 50 ml @ 1 mls/hr Q24H IV 11/03/24 04:00 11/03/24 17:39 Levetiracetam 100 ml @ 400 mls/hr BID IV 11/03/24 10:00 11/03/24 21:33 Ondansetron HCl (Zofran) 4 mg Q4HP PRN IV NAUSEA / VOMITING 11/03/24 05:00 Enoxaparin Sodium (Lovenox) 40 mg DAILY SC 11/03/24 10:00 11/03/24 09:38 Acetaminophen (Tylenol Tablet) 650 mg Q6HP PRN PO PAIN SCALE 1-3 OR TEMP>100.4 11/03/24 05:00 Nitroglycerin (Ntrostat Sublingual) 0.4 mg Q5MINP PRN SL FOR CHEST PAIN 11/03/24 05:00 Morphine Sulfate 2 mg Q30M PRN IV FOR CHEST PAIN 11/03/24 05:00 Albuterol (Ventolin Medneb) 2.5 mg Q6HPRN PRN NEB SHORTNESS OF BREATH 11/03/24 05:00 Lorazepam (Ativan Inj) 1 mg Q5MINP PRN IV SEIZURES 11/03/24 14:00 11/03/24 18:30 Review of Systems As above mentioned, the other systems are negative Vital Signs Vital Signs Date Time Temp Pulse Resp B/P (MAP) Pulse Ox O2 Delivery O2 Flow Rate FiO2 11/03/24 21:27 100.8 96 16 129/85 (100) 98 100.8 11/03/24 20:04 30 11/03/24 20:00 Mechanical Ventilator+ 11/03/24 02:40 15 Physical Exam The patient is well-nourished and well-developed with no distress. The patient is intubated HEENT: Normocephalic, neck supple, no carotid bruits Lungs: Clear to auscultation Cardiovascular: Regular rate and region, S1, S2, no murmurs Abdomen: Soft, nontender, normal bowel sounds MENTAL STATUS: Responsive to stroke painful stimuli CRANIAL NERVES: Pupils are equal, round and reactive.There are corneal reflexes and doll's eyes phenomenon. No signs of facial weakness. There are gagging or coughing reflexes SENSATION: Responses to strong pain stimuli. MOTOR: Normal tone in the upper and lower extremity. Normal muscle bulk. No fasciculations. No spontaneous movement. REFLEXES: Deep tendon reflexes are symmetrical. No pathological reflexes. CEREBELLAR/COORDINATION: Deferred GAIT/STATION: deferred. Labs/Diagnostic Data Labs Test 11/03/24 08:33 11/03/24 07:04 11/03/24 03:00 11/03/24 02:58 Range/Units Blood Gas Specimen Type Arterial Blood Gas Sample Site Right radial Blood Gas Patient Temperature 37.0 Arterial Blood Date Drawn [id number] Arterial Blood pH 7.446 7.350-7.450 Arterial Blood Partial Pressure CO2 40.0 35.0-48.0 mmHg Arterial Blood Partial Pressure O2 111.0 H 83.0-108.0 mmHg Arterial Blood HCO3 26.9 21.0-28.0 mmol/L Arterial Blood Oxygen Saturation 97.5 94.0-98.0 % Arterial Blood Base Excess 2.7 -2.0-3.0 mmol/L Arterial Blood Oxyhemoglobin 95.5 94.0-98.0 % Arterial Blood Carboxyhemoglobin 1.8 H 0.5-1.5 % Arterial Blood Methemoglobin 0.3 0.0-1.5 % Jeison Test Modified Blood Gas Total Hemoglobin 15.90 13.5-17.5 g/dL Blood Gas Set Respiration Rate 16.0 Blood Gas Modality Vent - ac FiO2 % 40.0 Blood Gas Tidal Volume 500.0 Blood Gas PEEP or CPAP 5.0 Lactic Acid Level 1.6 0.4-2.0 mmol/L Urine Color Light-yellow Yellow Urine Clarity Clear Clear Urine pH 5.5 5.0-9.0 Urine Specific [place] 1.020 1.001-1.035 Urine Protein 1+ H Negative Urine Ketones 1+ H Negative Urine Blood Trace H Negative /uL Urine Nitrite Negative Negative Urine Bilirubin Negative Negative Urine Urobilinogen Normal Negative mg/dL Urine Leukocyte Esterase Negative Negative /uL Urine RBC 3 0 - 3 /hpf Urine WBC 2 0 - 3 /hpf Urine Squamous Epithelial Cells None seen <5 /hpf Urine Amorphous Crystals Few None Seen /hpf Urine Bacteria None seen None Seen /hpf Urine Glucose Normal Normal mg/dL Urine Opiates Screen Neg NEGATIVE Urine Fentanyl Screen Neg NEGATIVE Urine Barbiturates Screen Neg NEGATIVE Urine Phencyclidine Screen Neg NEGATIVE Urine Amphetamines Screen Neg NEGATIVE Urine Benzodiazepines Screen Pos NEGATIVE Urine Cocaine Screen Neg NEGATIVE Urine Cannabinoids Screen Pos NEGATIVE Blood Gas Spontaneous Rate 16 Blood Gas Critical Value Read Back yes Blood Gas Notified Whom md daniel ogss Blood Gas Notified Time [id number] Blood Gas Notified By sara Polanco 11/03/24 02:55 Range/Units White Blood Count 6.1 4.4-10.8 10^3/uL Red Blood Count 4.87 4.5-5.90 10^6/uL Hemoglobin 15.3 13.5-17.5 g/dL Hematocrit 44.5 41.0-53.0 % Mean Corpuscular Volume 91.5 80.0-100.0 fL Mean Corpuscular Hemoglobin 31.5 28.0-32.0 pg Mean Corpuscular Hemoglobin Concent 34.4 32.0-36.0 g/dL Red Cell Distribution Width 13.8 11.8-14.3 % Platelet Count 207 140-450 10^3/uL Mean Platelet Volume 7.2 6.9-10.8 fL Neutrophils (%) (Auto) 55.8 37.0-80.0 % Lymphocytes (%) (Auto) 35.2 10.0-50.0 % Monocytes (%) (Auto) 5.7 0.0-12.0 % Eosinophils (%) (Auto) 2.8 0.0-7.0 % Basophils (%) (Auto) 0.5 0.0-2.0 % Neutrophils # (Auto) 3.4 1.6-8.6 10 ^3/uL Lymphocytes # (Auto) 2.1 0.4-5.4 10 ^3/uL Monocytes # (Auto) 0.3 0-1.3 10 ^3/uL Eosinophils # (Auto) 0.2 0-0.8 10 ^3/uL Basophils # (Auto) 0 0-0.2 10 ^3/uL Nucleated Red Blood Cells 0.1 % Sodium Level 145 136-145 mmol/L Potassium Level 3.7 3.5-5.1 mmol/L Chloride Level 110 H 98-107 mmol/L Carbon Dioxide Level 24 20-31 mmol/L Anion Gap 11 5-15 Blood Urea Nitrogen 15 9-23 mg/dL Creatinine 0.92 0.700-1.30 mg/dL Glomerular Filtration Rate Calc 113 >90 mL/min BUN/Creatinine Ratio 16.3 10.0-20.0 Serum Glucose 134 H 74-106 mg/dL Calcium Level 9.2 8.7-10.4 mg/dL Total Bilirubin 0.4 0.2-1.0 mg/dL Aspartate Amino Transferase (AST) 11 L 13-40 U/L Alanine Aminotransferase (ALT) 14 7-40 U/L Alkaline Phosphatase 49 46-116 U/L Total Protein 6.2 5.7-8.2 g/dL Albumin 4.1 3.2-4.8 g/dL Assessment Status epileptics Grand mal seizure Poor compliance to treatment Multiple sclerosis Gait disturbance since 11/02/2024, to rule out MS exacerbation Plan/Recommendation Monitoring Supportive treatment EEG MR brain wwo MRI C-spine wwo MRI T-spine wwo ICU care Stabilize vitals Respiratory support/vent management Keppra 1000 mg IV b.i.d. Ativan for seizure breakthrough Copaxone 40 mg subQ 3 times weekly DVT prophylaxis Will address compliance issue later F/U with Dr. Baez on D/C More recommendation per clinical course Progress: Guarded This medical document was created using an electronic medical record system with [employer] dictation system. Although this document has been carefully reviewed, there may still be some phonetic and typographical errors. These areas are purely typographical due to imperfections of the software programs, and do not reflect any compromise in the patient's medical care. Plan discussed with: ИРИНА Tran MD Nov 03, 2024 22:02
[2024-11-03] MEDS ORDERED: LORazepam 2MG/ML-1ML VIAL IV PRN (23:30)
[2024-11-04] VITALS (68 sets, daily range): BP systolic 100–146; BP diastolic 69–105; PULSE 79–111; RESP 16–19; TEMP 98.6–100.6; O2SAT 95–100
[2024-11-04 04:16] LABS: Basophils # (auto) 0.1 10 ^3/uL (0-0.2); Basophils % (auto) 0.4 % (0.0-2.0); Eosinophils # (auto) 0.2 10 ^3/uL (0-0.8); Eosinophils % (auto) 1.2 % (0.0-7.0); Hematocrit 46.5 % (41.0-53.0); Lymphocytes # (auto) 1.5 10 ^3/uL (0.4-5.4); Mean Corpuscular Hemoglobin 31.2 pg (28.0-32.0); Mean Corpuscular Hgb Conc. 34.5 g/dL (32.0-36.0); Mean Corpuscular Volume 90.5 fL (80.0-100.0); Monocytes # (auto) 1.2 10 ^3/uL (0-1.3); Monocytes % (auto) 7.5 % (0.0-12.0); Neutrophils # (auto) 12.4 10 ^3/uL (1.6-8.6); Neutrophils % (auto) 80.9 % (37.0-80.0); Nucleated Red Blood Cells % 0.1 %; Platelet Count (auto) 184 10^3/uL (140-450); Red Blood Cells 5.14 10^6/uL (4.5-5.90); Red Cell Distribution Width 13.7 % (11.8-14.3); White Blood Cell 15.4 10^3/uL (4.4-10.8)
[2024-11-04 04:24] LABS: Potassium 4.1 mmol/L (3.5-5.1)
[2024-11-04 04:25] LABS: Anion Gap 6 (5-15); Carbon Dioxide 30 mmol/L (20-31)
[2024-11-04 04:26] LABS: Calcium 9.2 mg/dL (8.7-10.4)
[2024-11-04 04:30] LABS: BUN/Creatinine Ratio 13.2 (10.0-20.0); Blood Urea Nitrogen 12 mg/dL (9-23); Glucose 92 mg/dL (74-106)
[2024-11-04 04:33] LABS: Chloride 110 mmol/L (98-107); Sodium 146 mmol/L (136-145)
[2024-11-04 07:59] LABS: Base Excess -2.3 mmol/L (-2.0-3.0)
--- NOTE | 2024-11-04 08:28 | DVHPN2 ---
Progress Note - Dictate Date Seen: Nov 04, 2024 Medical Necessity Reason Pt with a Central, PICC or Fol: Yes The following are medically ne: Barnard Catheter Subjective Mr Hamilton is a 34 yo male wit h a history of MS, sinclair's palsy. He was brought to the [facility] on 11/03/2024 for seizure activity. At this time, he is slight responds to stroke painful stimuli, sedated, intubated, the history is obtained from his sister, and chart review, talking to his nurse I saw him in 07/2013, 10/2013, 10/2014 for MS exacerbation and he received IV Solu-Medrol. I saw her on 04/22/2051 for medication reaction/MS exacerbation Have seen and examined the patient, I have talked to her nurse, the case was discussed with Dr. Cain Urinalysis, 11/03/2024: Unremarkable UDS, 11/03/2024: Benzo, cannabinoids ABG, 11/03/2024: Respiratory acidosis CBC, 11/03/2024: Unremarkable CMP, 5 11/03/2024: Unremarkable Lactic acid, 11/03/2024: 5.9 Chest x-ray, 11/03/2024: 1. No acute cardiopulmonary disease is seen. 2. Endotracheal tube noted with its distal end located approximately 4.8 cm proximal to the madelaine in appropriate position. 3. Nasogastric tube noted with its distal end below left hemidiaphragm, possibly in stomach, however, the tip is out of field of view. If more precise position of tube is required, suggest x-ray abdomen pre and post injection of 200 cc of air or 60ml of gastrografin. Lungs are clear and well expanded with no pulmonary infiltrate or pleural effusion. CT HEAD, 11/03/2024: No acute intracranial abnormality. MRi HEADACHE, 08/18/2013: Numerous patchy white matter signal abnormalities. Given the clinical history, this is suspicious for multiple sclerosis. Other causes of demyelination cannot be excluded MRI brain w 08/18/13: No enhancing lesions are seen. No evidence of mass MRA brain scan, 08/18/13: Unremarkable MRA of the brain vital signs Vital Sign Date Time Temp Pulse Resp B/P (MAP) Pulse Ox O2 Delivery O2 Flow Rate FiO2 11/04/24 08:21 89 16 120/74 (89) 99 30 11/04/24 06:17 99.0 99.0 11/04/24 05:44 Mechanical Ventilator+ 11/03/24 02:40 15 Total Intake and Output 11/03/24 11/03/24 11/04/24 15:00 23:00 07:00 Intake Total 1064 ml 243.785 ml 190.099 ml Output Total 900 ml 300 ml Balance 1064 ml -656.215 ml -109.901 ml medications Current Medications Medications Dose Ordered Sig/Lainey Route Start Time Stop Time Status Last Admin Dose Admin Propofol 100 ml @ 2.451 mls/ hr Q24H IV 11/03/24 03:00 11/04/24 04:04 17.157 MLS/HR Midazolam HCl 50 ml @ 1 mls/hr Q24H IV 11/03/24 04:00 11/03/24 23:35 10 MLS/HR Levetiracetam 100 ml @ 400 mls/hr BID IV 11/03/24 10:00 11/03/24 21:33 400 MLS/HR Ondansetron HCl 4 mg Q4HP PRN IV 11/03/24 05:00 Enoxaparin Sodium 40 mg DAILY SC 11/03/24 10:00 11/03/24 09:38 40 MG Acetaminophen 650 mg Q6HP PRN PO 11/03/24 05:00 11/03/24 21:43 650 MG Nitroglycerin 0.4 mg Q5MINP PRN SL 11/03/24 05:00 Morphine Sulfate 2 mg Q30M PRN IV 11/03/24 05:00 Albuterol 2.5 mg Q6HPRN PRN NEB 11/03/24 05:00 Lorazepam 1 mg Q5MINP PRN IV 11/03/24 14:00 11/03/24 18:30 1 MG Lorazepam 1 mg Q5MINP PRN IV 11/03/24 23:30 Patient Own Medication 40 mg MWF SC 11/05/24 10:00 UNV objective The patient is well-nourished and well-developed with no distress. The patient is intubated Abdomen: Soft, nontender, normal bowel sounds MENTAL STATUS: Responsive to stroke painful stimuli CRANIAL NERVES: Pupils are equal, round and reactive.There are corneal reflexes and doll's eyes phenomenon. No signs of facial weakness. There are gagging or coughing reflexes SENSATION: Responses to strong pain stimuli. MOTOR: Normal tone in the upper and lower extremity. Normal muscle bulk. No fasciculations. No spontaneous movement. REFLEXES: Deep tendon reflexes are symmetrical. No pathological reflexes. CEREBELLAR/COORDINATION: Deferred GAIT/STATION: deferred laboratory and microbiology Laboratory Tests 11/04/24 04:00 Test 11/04/24 04:00 Range/Units Serum Glucose 92 74-106 mg/dL Problem List Status epileptics Grand mal seizure Poor compliance to treatment Multiple sclerosis Gait disturbance since 11/02/2024, to rule out MS exacerbation Assessment/Plan Monitoring Supportive treatment EEG MR brain wwo MRI C-spine wwo MRI T-spine wwo ICU care Stabilize vitals Respiratory support/vent management Keppra 1000 mg IV b.i.d. Ativan for seizure breakthrough Copaxone 40 mg subQ 3 times weekly DVT prophylaxis Will address compliance issue later F/U with Dr. Baez on D/C More recommendation per clinical course This medical document was created using an electronic medical record system with [employer] dictation system. Although this document has been carefully reviewed, there may still be some phonetic and typographical errors. These areas are purely typographical due to imperfections of the software programs, and do not reflect any compromise in the patient's medical care Prognosis guarded Plan discussed with: Other Critical Care Time(min): 35 ИРИНА STEPHENS MD Nov 04, 2024 08:28
--- NOTE | 2024-11-04 08:41 | DVHPN2 ---
Reviewed: Care Plan, H&P, Labs, Medications, Previous Orders, Radiology Changes from previous H/P or p: No Changes Objective Vitals Vital Signs Date Time Temp Pulse Resp B/P (MAP) Pulse Ox O2 Delivery O2 Flow Rate FiO2 11/04/24 08:21 89 16 120/74 (89) 99 30 11/04/24 06:17 99.0 99.0 11/04/24 05:44 Mechanical Ventilator+ 11/03/24 02:40 15 Intake/Output Intake and Output 11/04/24 07:00 Intake Total 1497.884 ml Output Total 1200 ml Balance 297.884 ml Intake Oral 0 ml IV Total 1497.884 ml Tube Feeding 0 ml Output Urine Total 1200 ml Stool Total 0 ml Medications Current Medications Medications Dose Ordered Sig/Lainey Route Start Time Stop Time Status Last Admin Dose Admin Propofol 100 ml @ 2.451 mls/ hr Q24H IV 11/03/24 03:00 11/04/24 04:04 17.157 MLS/HR Midazolam HCl 50 ml @ 1 mls/hr Q24H IV 11/03/24 04:00 11/03/24 23:35 10 MLS/HR Levetiracetam 100 ml @ 400 mls/hr BID IV 11/03/24 10:00 11/03/24 21:33 400 MLS/HR Ondansetron HCl 4 mg Q4HP PRN IV 11/03/24 05:00 Enoxaparin Sodium 40 mg DAILY SC 11/03/24 10:00 11/03/24 09:38 40 MG Acetaminophen 650 mg Q6HP PRN PO 11/03/24 05:00 11/03/24 21:43 650 MG Nitroglycerin 0.4 mg Q5MINP PRN SL 11/03/24 05:00 Morphine Sulfate 2 mg Q30M PRN IV 11/03/24 05:00 Albuterol 2.5 mg Q6HPRN PRN NEB 11/03/24 05:00 Lorazepam 1 mg Q5MINP PRN IV 11/03/24 14:00 11/03/24 18:30 1 MG Lorazepam 1 mg Q5MINP PRN IV 11/03/24 23:30 Patient Own Medication 40 mg MWF SC 11/05/24 10:00 UNV Laboratory Results Laboratory Tests 11/04/24 04:00 Chemistry Test 11/04/24 04:00 Calcium Level 9.2 mg/dL (8.7-10.4) Urinalysis Test 11/03/24 03:00 Urine Color Light-yellow (Yellow) Urine Clarity Clear (Clear) Urine pH 5.5 (5.0-9.0) Urine Specific [place] 1.020 (1.001-1.035) Urine Protein 1+ (Negative) H Urine Ketones 1+ (Negative) H Urine Blood Trace /uL (Negative) H Urine Nitrite Negative (Negative) Urine Bilirubin Negative (Negative) Urine Urobilinogen Normal mg/dL (Negative) Urine Leukocyte Esterase Negative /uL (Negative) Urine RBC 3 /hpf (0 - 3) Urine WBC 2 /hpf (0 - 3) Urine Squamous Epithelial Cells None seen /hpf (<5) Urine Amorphous Crystals Few /hpf (None Seen) Urine Bacteria None seen /hpf (None Seen) Urine Glucose Normal mg/dL (Normal) Blood Gas Results Test 11/04/24 07:48 Arterial Blood pH 7.444 (7.350-7.450) FiO2 % 30.0 Labs and/or images reviewed: Labs reviewed by me, Image(s) reviewed by me Assessment/Plan Assessment/Plan Acute hypoxic respiratory failure on mechanical ventilator 30 % FiO2, permanent consult by Dr. Ratliff appreciated Sepsis with the elevated white count possible aspiration pneumonia: Zosyn Status epilepticus History of seizures Multiple sclerosis Nicotine dependence Noncompliance CT head negative Patient seen in the ER bed 6. ICU admission time spent 65 minutes Full code Advanced care planning time 20 minutes Plan discussed with: Patient My Orders Orders - KARI MURILLO MD Procedure Category Date Status Time * Neurology Consult CONS 11/03/24 Transmitted 12:39 Lorazepam 2mg/Ml Inj PHA 11/03/24 In Process (Ativan Inj) 14:00 Date of Service: Nov 04, 2024 Billing Provider: KARI MURILLO MD Common Visit Codes: [id number] CARE 30-74 MIN KARI MURILLO MD Nov 04, 2024 08:41
--- NOTE | 2024-11-04 09:34 | DVH ---
CHEST RADIOGRAPH Indication: respiratory failure Technique: Frontal radiograph of the chest was obtained. Comparison: XY CHEST XRAY 1 VIEW on DOS: 11/03/24 FINDINGS: Lines and Tubes: ET tube 5cm from madelaine. NG tube in stomach. Lungs: No focal consolidation. Pleura: No effusion. No pneumothorax. Cardiomediastinal contours: Unremarkable Bones: No acute osseous abnormality. IMPRESSION: No acute cardiopulmonary disease.
[2024-11-04] MEDS: D5W/SOD CHLO 0.9% 1,000 ML IV SCH (11:11)
--- NOTE | 2024-11-04 13:01 | DVH ---
PROCEDURE: MRI CERVICAL WITH CONTRAST INDICATION: MS EXAM DATE: 11/04/2024 12:05 PM COMPARISON: CT HEAD WITHOUT CONTRAST on DOS: 11/03/24 TECHNIQUE: MRI cervical spine with and without 20 cc dotarem intravenous contrast. FINDINGS: The cervical alignment is intact. The vertebral body heights and marrow signal are within normal harris its. The visualized posterior fossa and craniocervical junction are intact. There is patchy abnorma l cord signal throughout the cervical spine consistent with given history of multiple sclerosis. No a bnormal enhancement. There is no prevertebral soft tissue swelling. The visualized paraspinal soft tissues are otherwise unremarkable. Prominent right cervical lymph node measuring up to 10 mm in shor t axis. Endotracheal tube and nasogastric tube are noted. The following axial levels are detailed below: C2-C3: Unremarkable. C3-C4: Unremarkable. C4-C5: Uncovertebral hypertrophy contributes to [id number] bilateral neural foraminal stenosis . C5-C6: Unremarkable. C6-C7: Unremarkable. C7-T1: Unremarkable. IMPRESSION: 1. Degenerative disease C4-5 associated with [id number] bilateral neural foraminal stenosis. No significant central canal stenosis. 2. Patchy abnormal cord signal throughout the cervical spine consistent with given history of multipl e sclerosis. No abnormal enhancement to suggest active demyelination. Correlate with prior imaging i f available to determine stability. Alternatively recommend continued follow-up. HS:Y
--- NOTE | 2024-11-04 13:29 | DVH ---
CLINICAL INDICATION: 34 years old, Male; multiple sclerosis. COMPARISON: CT HEAD WITHOUT CONTRAST on DOS: 11/03/24 TECHNIQUE: Multisequence multiplanar MRI images of the brain were obtained without contrast. FINDINGS: There are moderate to marked confluent areas of T2/FLAIR hyperintense signal in the mcnally radiata and centrum semiovale, likely correlating with reported clinical history of multiple scleros is. There are small areas of T2/FLAIR hyperintense signal which demonstrate mildly increased signal i n the diffusion-weighted images, including a lesion in the left parafalcine posterior frontal lobe, without definite hypointense signal on the ADC map to suggest true restricted diffusion. There are no enhancing lesions. No abnormal parenchymal or meningeal enhancement is seen. No lesions are seen in the cerebellum or brainstem. No mass or midline shift. Ventricles and sulci are within normal limits. Basal cisterns are patent. Rwvf-dh-[id number] mucosal thickening of the paranasal sinuses with retent ion cysts in the maxillary sinuses bilaterally. Orbits are grossly unremarkable. IMPRESSION: 1. Moderate to large areas of confluent T2/FLAIR hyperintense signal in the centrum semiovale and cor paul radiata bilaterally correlating with reported clinical history of multiple sclerosis as detailed above. 2. No abnormal postcontrast enhancement. 3. No definite restricted diffusion in any of the lesions. 4. Paranasal sinus disease as described above.
[2024-11-04] MEDS: PIPERACILLIN-TAZOB 3.375GM 100 ML IV SCH (14:28)
[2024-11-04] MEDS: levETIRAcetam 1000 mg/100ml 200 ML IV ONE (19:32)
[2024-11-04] MEDS: GADOTERATE MEG 10 MMOL/20ml INJ (0.5MMOL/ml) IV ONE (19:33)
[2024-11-04] MEDS: ALBUTEROL SULF 2.5 MG/0.5ML(0.5%) NEB SOLN NEB PRN (19:36)
--- NOTE | 2024-11-04 23:15 | DVHPN2 ---
Progress Note - Dictate Date Seen: Nov 04, 2024 Medical Necessity Reason Pt with a Central, PICC or Fol: Yes The following are medically ne: Barnard Catheter Subjective Patient seen and examined at bedside. Sedated, intubated on mechanical ventilator. Overnight events reviewed. vital signs Vital Sign Date Time Temp Pulse Resp B/P (MAP) Pulse Ox O2 Delivery O2 Flow Rate FiO2 11/04/24 22:41 17 97 Mechanical Ventilator+ 16 30 30 11/04/24 22:10 94 107/72 (84) 11/04/24 21:29 100.4 Total Intake and Output 11/03/24 11/03/24 11/04/24 15:00 23:00 07:00 Intake Total 1064 ml 243.785 ml 217.256 ml Output Total 900 ml 300 ml Balance 1064 ml -656.215 ml -82.744 ml medications Current Medications Medications Dose Ordered Sig/Lainey Route Start Time Stop Time Status Last Admin Dose Admin Propofol 100 ml @ 2.451 mls/ hr Q24H IV 11/03/24 03:00 11/04/24 14:22 17.157 MLS/HR Midazolam HCl 50 ml @ 1 mls/hr Q24H IV 11/03/24 04:00 11/04/24 14:20 10 MLS/HR Levetiracetam 100 ml @ 400 mls/hr BID IV 11/03/24 10:00 11/04/24 21:46 400 MLS/HR Ondansetron HCl 4 mg Q4HP PRN IV 11/03/24 05:00 Enoxaparin Sodium 40 mg DAILY SC 11/03/24 10:00 11/04/24 09:22 40 MG Acetaminophen 650 mg Q6HP PRN PO 11/03/24 05:00 11/04/24 20:28 650 MG Nitroglycerin 0.4 mg Q5MINP PRN SL 11/03/24 05:00 Morphine Sulfate 2 mg Q30M PRN IV 11/03/24 05:00 Albuterol 2.5 mg Q6HPRN PRN NEB 11/03/24 05:00 11/04/24 19:36 2.5 MG Lorazepam 1 mg Q5MINP PRN IV 11/03/24 14:00 11/03/24 18:30 1 MG Lorazepam 1 mg Q5MINP PRN IV 11/03/24 23:30 Patient Own Medication 40 mg MWF SC 11/05/24 10:00 Piperacillin Sod/ Tazobactam Sod 100 ml @ 25 mls/hr Q8HR IV 11/04/24 14:00 11/04/24 21:54 25 MLS/HR Dextrose/Sodium Chloride 1,000 ml @ 100 mls/hr Q10H IV 11/04/24 09:15 11/04/24 19:15 100 MLS/HR objective Gen.: Patient lying in bed in medical ICU. Sedated, intubated on mechanical ventilator. Head: Normocephalic, atraumatic. Eyes: PERRLA. Ears: Normal external anatomy. Throat: Endotracheal tube and orogastric tube in place. Neck: Supple, trachea midline. Chest: Transmitted breath sounds bilaterally. Decreased air entry bilaterally. No wheezing. Bibasilar crackles. Cardiovascular: Positive S1, positive S2. Regular rate and rhythm. Abdomen: Positive bowel sounds in all 4 quadrants. Soft, nontender, nondistended. : Barnard in place. Normal external genitalia. Rectal: Deferred. Skin: Warm, dry. Intact. Extremities: 2+ radial pulses bilaterally. No lower extremity edema. Neuro: Sedated. laboratory and microbiology Laboratory Tests 11/04/24 04:00 Test 11/04/24 04:00 Range/Units Serum Glucose 92 74-106 mg/dL Assessment/Plan Impression: Acute hypoxic respiratory failure On mechanical ventilator Status epilepticus Multiple sclerosis Nicotine dependence Events: Remains on vent support On AC mode; RR 16, VT 500, PEEP 5, FiO2 30%. Sedated on Propofol, Versed ABG reviewed, compensated. Patient with hx of MS. Neurology recommendations appreciated. Plan for brain MRI. Keppra for seizures Continue antibiotics IV fluid hydration. Labs and imaging reviewed. Rest of plan as noted below. Plan: s/p intubation on mechanical ventilator. CXR image and report reviewed. Devices in place. No acute cardiopulmonary disease. ABG reviewed, compensated. Head CT showed no acute intracranial abnormalities Antiseizure medications - Keppra. Obtain Neurology consult. On AC mode; RR 16, VT 500, PEEP 5, FiO2 30%. Titrate FIO2 to keep O2 saturation above 90%. VAP bundle. Daily ABG and CXR while intubated Sedate for ventilator synchrony - Versed, Propofol drips. Start pressors if necessary to maintain a mean arterial blood pressure greater than 65 mmHg. IV fluids with NS 100 ml/hr. F/u Nephrology recommendations Monitor renal function Monitor electrolytes. Supplement as necessary. Monitor ins and outs. Smoking cessation discussed for greater than 10 minutes DVT prophylaxis - Lovenox SC. Prognosis: Poor given patient's multiple co-morbidities. Condition: Critical Rest of plan per hospitalist and other consultants. A total of 35 minutes of critical care time was spent reviewing the patient record, examining the patient, making a diagnostic and therapeutic plan, discussing this plan with the medical personnel, following up on diagnostic studies and following the patient for clinical stability excluding any and all procedures. At least 50% of this time was spent in direct, [id number]-bk-[id number] contact. Thank you Dr. Rusty Cain MD, for allowing me to participate in this patient's care. Further recommendations will depend on the patient's clinical course. Please do not hesitate to contact me if you have any questions or concerns. This medical document was created using an electronic medical record system with [employer] dictation system. Although these documentations are being carefully reviewed, there may still be some phonetic and typographical changes. The errors are purely typographical, due to imperfection on the software program, and do not reflect any compromise in the patient's medical care. Plan discussed with: Other (XANDER Meek) Critical Care Time(min): 35 ALICE BLAKELY MD Nov 04, 2024 23:15
[2024-11-05] VITALS (15 sets, daily range): BP systolic 93–133; BP diastolic 53–85; PULSE 83–114; RESP 16–21; O2SAT 97–100
[2024-11-05] MEDS: PHENobarbital SODIUM INJ 260 MG in SODIUM CHL 0.9% 100 ML IV ONE (00:48)
[2024-11-05] MEDS: PHENobarbital SODIUM 130 MG/ML VL ONE (01:01)
--- NOTE | 2024-11-05 06:47 | ECG ---
[facility] Test Date: 2024-11-05 Test Time: 01:32:41 Pat Name: RUI ESTRELLA Department: ED Room: [address] [place] [address] Gender: M System Admin: PHAN : 1990 Requested By: KYRIE SULLIVAN Order Number: [id number] Reading MD: Mich Irby Measurements Intervals [place] Rate: 105 P: 70 [place]: 128 QRS: 12 QRSD: 93 T: 62 QT: 322 QTc: 426 Interpretive Statements Sinus tachycardia Low voltage, precordial leads Baseline wander in lead(s) V2 Electronically Signed On 11-07-2024 12:42:58 PST by Mich Irby Please click the below link to view image of tracing.
[2024-11-05 07:05] LABS: Base Excess -2.8 mmol/L (-2.0-3.0)
--- NOTE | 2024-11-05 08:00 | DVHPN2 ---
Reviewed: Care Plan, H&P, Labs, Medications, Previous Orders, Radiology Changes from previous H/P or p: No Changes Objective Vitals Vital Signs Date Time Temp Pulse Resp B/P (MAP) Pulse Ox O2 Delivery O2 Flow Rate FiO2 11/05/24 07:00 111/73 11/05/24 07:00 98.6 85 16 100 98.6 11/05/24 06:52 30 11/04/24 22:41 Mechanical Ventilator+ 16 Intake/Output Intake and Output 11/05/24 07:00 Intake Total 3110.788 ml Output Total 675 ml Balance 2435.788 ml IV Total 3110.788 ml Output Urine Total 675 ml Stool Total 0 ml Medications Current Medications Medications Dose Ordered Sig/Lainey Route Start Time Stop Time Status Last Admin Dose Admin Propofol 100 ml @ 2.451 mls/ hr Q24H IV 11/03/24 03:00 11/05/24 03:29 22.059 MLS/HR Midazolam HCl 50 ml @ 1 mls/hr Q24H IV 11/03/24 04:00 11/05/24 03:15 11 MLS/HR Levetiracetam 100 ml @ 400 mls/hr BID IV 11/03/24 10:00 11/04/24 21:46 400 MLS/HR Ondansetron HCl 4 mg Q4HP PRN IV 11/03/24 05:00 Enoxaparin Sodium 40 mg DAILY SC 11/03/24 10:00 11/04/24 09:22 40 MG Acetaminophen 650 mg Q6HP PRN PO 11/03/24 05:00 11/05/24 02:42 650 MG Nitroglycerin 0.4 mg Q5MINP PRN SL 11/03/24 05:00 Morphine Sulfate 2 mg Q30M PRN IV 11/03/24 05:00 Albuterol 2.5 mg Q6HPRN PRN NEB 11/03/24 05:00 11/05/24 00:25 2.5 MG Lorazepam 1 mg Q5MINP PRN IV 11/03/24 14:00 11/05/24 04:32 1 MG Lorazepam 1 mg Q5MINP PRN IV 11/03/24 23:30 Patient Own Medication 40 mg MWF SC 11/05/24 10:00 Piperacillin Sod/ Tazobactam Sod 100 ml @ 25 mls/hr Q8HR IV 11/04/24 14:00 11/05/24 06:37 25 MLS/HR Dextrose/Sodium Chloride 1,000 ml @ 100 mls/hr Q10H IV 11/04/24 09:15 11/04/24 19:15 100 MLS/HR Laboratory Results Laboratory Tests 11/04/24 04:00 Urinalysis Test 11/03/24 03:00 Urine Color Light-yellow (Yellow) Urine Clarity Clear (Clear) Urine pH 5.5 (5.0-9.0) Urine Specific [place] 1.020 (1.001-1.035) Urine Protein 1+ (Negative) H Urine Ketones 1+ (Negative) H Urine Blood Trace /uL (Negative) H Urine Nitrite Negative (Negative) Urine Bilirubin Negative (Negative) Urine Urobilinogen Normal mg/dL (Negative) Urine Leukocyte Esterase Negative /uL (Negative) Urine RBC 3 /hpf (0 - 3) Urine WBC 2 /hpf (0 - 3) Urine Squamous Epithelial Cells None seen /hpf (<5) Urine Amorphous Crystals Few /hpf (None Seen) Urine Bacteria None seen /hpf (None Seen) Urine Glucose Normal mg/dL (Normal) Blood Gas Results Test 11/05/24 07:00 Arterial Blood pH 7.393 (7.350-7.450) FiO2 % 30.0 Microbiology Microbiology Date/Time Source Procedure Growth Status 11/03/24 02:51 Sputum Gram Stain - Final Resulted 11/03/24 02:51 Sputum Respiratory Culture - Preliminary Resulted Labs and/or images reviewed: Labs reviewed by me, Image(s) reviewed by me Assessment/Plan Assessment/Plan Acute hypoxic respiratory failure on mechanical ventilator 30 % FiO2, permanent consult by Dr. Ratliff appreciated Sepsis with the elevated white count possible aspiration pneumonia: Sputum cultures growing Gram-negative rods, continue Zosyn Status epilepticus History of seizures Multiple sclerosis: MRI brain and MRI C-spine confirmed the diagnosis of multiple sclerosis Nicotine dependence Noncompliance CT head negative MRI brain negative except for changes of multiple sclerosis Patient seen in the ER bed 6. ICU admission time spent 65 minutes Full code Advanced care planning time 20 minutes Plan discussed with: Patient My Orders Orders - KARI MURILLO MD Procedure Category Date Status Time Piperacillin-Tazob PHA 11/04/24 In Process 3.375gm (Zosyn 3.375g 14:00 D5w/Sod Chlo 0.9% PHA 11/04/24 In Process (D5w Ns 0.9%) 09:15 Cover Wound With Foam ELIZABETH 11/04/24 In Process Dressing 14:53 Date of Service: Nov 05, 2024 Billing Provider: KARI MURILLO MD Common Visit Codes: [id number] CARE 30-74 MIN KARI MURILOL MD Nov 05, 2024 07:59
--- NOTE | 2024-11-05 08:37 | DVHPN2 ---
Progress Note - Dictate Date Seen: Nov 05, 2024 Medical Necessity Reason Pt with a Central, PICC or Fol: Yes The following are medically ne: Barnard Catheter Subjective Mr Hamilton is a 34 yo male wit h a history of MS, sinclair's palsy. He was brought to the [facility] on 11/03/2024 for seizure activity. At this time, he is slight responds to stroke painful stimuli, sedated, intubated, the history is obtained from his sister, and chart review, talking to his nurse I saw him in 07/2013, 10/2013, 10/2014 for MS exacerbation and he received IV Solu-Medrol. I saw her on 04/22/2051 for medication reaction/MS exacerbation I have seen and examined the patient, discussed with his nurse, he was intubated, sedated, earlier this morning, he had elevated heart rate, and sleeping concerning possible seizure activity T-max 101.8 Urinalysis, 11/03/2024: Unremarkable UDS, 11/03/2024: Benzo, cannabinoids ABG, 11/03/2024: Respiratory acidosis CBC, 11/03/2024: Unremarkable WBC/HB/PLT/MCV, 11/04/2024: 15.4/16/184/90.5 CMP, 5 11/03/2024: Unremarkable Lactic acid, 11/03/2024: 5.9 Chest x-ray, 11/03/2024: 1. No acute cardiopulmonary disease is seen. 2. Endotracheal tube noted with its distal end located approximately 4.8 cm proximal to the madelaine in appropriate position. 3. Nasogastric tube noted with its distal end below left hemidiaphragm, possibly in stomach, however, the tip is out of field of view. If more precise position of tube is required, suggest x-ray abdomen pre and post injection of 200 cc of air or 60ml of gastrografin. Lungs are clear and well expanded with no pulmonary infiltrate or pleural effusion. CT HEAD, 11/03/2024: No acute intracranial abnormality. MRi HEADACHE, 08/18/2013: Numerous patchy white matter signal abnormalities. Given the clinical history, this is suspicious for multiple sclerosis. Other causes of demyelination cannot be excluded MRI brain w 08/18/13: No enhancing lesions are seen. No evidence of mass MR head, 11/04/2024: 1. Moderate to large areas of confluent T2/FLAIR hyperintense signal in the centrum semiovale and mcnally radiata bilaterally correlating with reported clinical history of multiple sclerosis as detailed above. 2. No abnormal postcontrast enhancement. 3. No definite restricted diffusion in any of the lesions. 4. Paranasal sinus disease as described above MRI C-spine o, 11/04/2024: 1. Degenerative disease C4-5 associated with [id number] bilateral neural foraminal stenosis. No significant central canal stenosis. 2. Patchy abnormal cord signal throughout the cervical spine consistent with given history of multiple sclerosis. No abnormal enhancement to suggest active demyelination. Correlate with prior imaging if available to determine stability. Alternatively recommend continued follow-up MRA brain scan, 08/18/13: Unremarkable MRA of the brain vital signs Vital Sign Date Time Temp Pulse Resp B/P (MAP) Pulse Ox O2 Delivery O2 Flow Rate FiO2 11/05/24 08:11 112/70 11/05/24 07:00 98.6 85 16 100 98.6 11/05/24 06:52 30 11/04/24 22:41 Mechanical Ventilator+ 16 Total Intake and Output 11/04/24 11/04/24 11/05/24 15:00 23:00 07:00 Intake Total 601.256 ml 1254.060 ml 1255.472 ml Output Total 450 ml 225 ml Balance 601.256 ml 804.060 ml 1030.472 ml medications Current Medications Medications Dose Ordered Sig/Lainey Route Start Time Stop Time Status Last Admin Dose Admin Propofol 100 ml @ 2.451 mls/ hr Q24H IV 11/03/24 03:00 11/05/24 08:09 22.059 MLS/HR Midazolam HCl 50 ml @ 1 mls/hr Q24H IV 11/03/24 04:00 11/05/24 08:11 11 MLS/HR Levetiracetam 100 ml @ 400 mls/hr BID IV 11/03/24 10:00 11/04/24 21:46 400 MLS/HR Ondansetron HCl 4 mg Q4HP PRN IV 11/03/24 05:00 Enoxaparin Sodium 40 mg DAILY SC 11/03/24 10:00 11/04/24 09:22 40 MG Acetaminophen 650 mg Q6HP PRN PO 11/03/24 05:00 11/05/24 02:42 650 MG Nitroglycerin 0.4 mg Q5MINP PRN SL 11/03/24 05:00 Morphine Sulfate 2 mg Q30M PRN IV 11/03/24 05:00 Albuterol 2.5 mg Q6HPRN PRN NEB 11/03/24 05:00 11/05/24 00:25 2.5 MG Lorazepam 1 mg Q5MINP PRN IV 11/03/24 14:00 11/05/24 04:32 1 MG Lorazepam 1 mg Q5MINP PRN IV 11/03/24 23:30 Patient Own Medication 40 mg MWF SC 11/05/24 10:00 Piperacillin Sod/ Tazobactam Sod 100 ml @ 25 mls/hr Q8HR IV 11/04/24 14:00 11/05/24 06:37 25 MLS/HR Dextrose/Sodium Chloride 1,000 ml @ 100 mls/hr Q10H IV 11/04/24 09:15 11/04/24 19:15 100 MLS/HR objective The patient is well-nourished and well-developed with no distress. The patient is intubated Abdomen: Soft, nontender, normal bowel sounds MENTAL STATUS: Responsive to stroke painful stimuli CRANIAL NERVES: Pupils are equal, round and reactive.There are corneal reflexes and doll's eyes phenomenon. No signs of facial weakness. There are gagging or coughing reflexes SENSATION: Responses to strong pain stimuli. MOTOR: Normal tone in the upper and lower extremity. Normal muscle bulk. No fasciculations. No spontaneous movement. REFLEXES: Deep tendon reflexes are symmetrical. No pathological reflexes. CEREBELLAR/COORDINATION: Deferred GAIT/STATION: deferred laboratory and microbiology Laboratory Tests 11/04/24 04:00 Test 11/04/24 04:00 Range/Units Serum Glucose 92 74-106 mg/dL Problem List Status epileptics Grand mal seizure Poor compliance to treatment Multiple sclerosis Gait disturbance since 11/02/2024, to rule out MS exacerbation Assessment/Plan Monitoring Supportive treatment EEG MR brain [facility] MRI T-spine [facility] ICU care Stabilize vitals Respiratory support/vent management Keppra 1000 mg IV b.i.d. Ativan for seizure breakthrough Copaxone 40 mg subQ 3 times weekly DVT prophylaxis Will address compliance issue later F/U with Dr. Baez on D/C More recommendation per clinical course This medical document was created using an electronic medical record system with [employer] computerized dictation system. Although this document has been carefully reviewed, there may still be some phonetic and typographical errors. These areas are purely typographical due to imperfections of the software programs, and do not reflect any compromise in the patient's medical care Prognosis Guarded Plan discussed with: Other Critical Care Time(min): 30 ИРИНА STEPHENS MD Nov 05, 2024 08:37
--- NOTE | 2024-11-05 10:44 | DVHEEG2 ---
Neurology EEG Procedural Note Procedural Note EXAM DATE: 11/04/2024 REFERRING DOCTOR: Dr. Stephens TECHNIQUE: Eighteen channels of EEG, 2 channels of EOG, and 1 channel of EKG were recorded using the International 10/20 system. CLINICAL DATA: The patient was referred for an EEG evaluation for the evidence of seizure disorder. MEDICATIONS: See chart BACKGROUND ACTIVITY: The record showed diffuse low amplitude mixed delta and theta activity over both hemispheres, that was reactive to external stimuli. ACTIVATION: Hyperventilation: Not done Photic Stimulation: Not done Sleep: Nonresponsiveness IMPRESSION: This is a remarkably abnormal EEG, this EEG is seen in severe cerebral dysfunction due to metabolic/hypoxic encephalopathy or medication effects, please correlate clinically. The EKG channel showed a regular heart rate of 96 per minute [place] [address]. ИРИНА STEPHENS MD Nov 05, 2024 10:44
[2024-11-05] MEDS: IBUPROFEN 800 MG TAB PO ONE (19:34)
--- NOTE | 2024-11-05 22:46 | DVHPN2 ---
Progress Note - Dictate Date Seen: Nov 05, 2024 Medical Necessity Reason Pt with a Central, PICC or Fol: Yes The following are medically ne: Barnard Catheter Subjective Patient seen and examined at bedside. Sedated, intubated on mechanical ventilator. Overnight events reviewed. vital signs Vital Sign Date Time Temp Pulse Resp B/P (MAP) Pulse Ox O2 Delivery O2 Flow Rate FiO2 11/05/24 22:07 101 17 121/73 (89) 99 30 11/05/24 19:34 103.6 11/05/24 07:30 Mechanical Ventilator+ 11/04/24 22:41 16 Total Intake and Output 11/04/24 11/04/24 11/05/24 15:00 23:00 07:00 Intake Total 601.256 ml 1254.060 ml 1255.472 ml Output Total 450 ml 225 ml Balance 601.256 ml 804.060 ml 1030.472 ml medications Current Medications Medications Dose Ordered Sig/Lainey Route Start Time Stop Time Status Last Admin Dose Admin Propofol 100 ml @ 2.451 mls/ hr Q24H IV 11/03/24 03:00 11/05/24 21:28 22.059 MLS/HR Midazolam HCl 50 ml @ 1 mls/hr Q24H IV 11/03/24 04:00 11/05/24 21:32 11 MLS/HR Levetiracetam 100 ml @ 400 mls/hr BID IV 11/03/24 10:00 11/04/24 21:46 400 MLS/HR Ondansetron HCl 4 mg Q4HP PRN IV 11/03/24 05:00 Enoxaparin Sodium 40 mg DAILY SC 11/03/24 10:00 11/05/24 09:27 40 MG Acetaminophen 650 mg Q6HP PRN PO 11/03/24 05:00 11/05/24 17:13 650 MG Nitroglycerin 0.4 mg Q5MINP PRN SL 11/03/24 05:00 Morphine Sulfate 2 mg Q30M PRN IV 11/03/24 05:00 Albuterol 2.5 mg Q6HPRN PRN NEB 11/03/24 05:00 11/05/24 19:51 2.5 MG Lorazepam 1 mg Q5MINP PRN IV 11/03/24 14:00 11/05/24 04:32 1 MG Lorazepam 1 mg Q5MINP PRN IV 11/03/24 23:30 Patient Own Medication 40 mg MWF SC 11/05/24 10:00 11/05/24 11:34 40 MG Piperacillin Sod/ Tazobactam Sod 100 ml @ 25 mls/hr Q8HR IV 11/04/24 14:00 11/05/24 17:09 25 MLS/HR Dextrose/Sodium Chloride 1,000 ml @ 100 mls/hr Q10H IV 11/04/24 09:15 11/05/24 09:26 100 MLS/HR objective Gen.: Patient lying in bed in medical ICU. Sedated, intubated on mechanical ventilator. Head: Normocephalic, atraumatic. Eyes: PERRLA. Ears: Normal external anatomy. Throat: Endotracheal tube and orogastric tube in place. Neck: Supple, trachea midline. Chest: Transmitted breath sounds bilaterally. Decreased air entry bilaterally. No wheezing. Bibasilar crackles. Cardiovascular: Positive S1, positive S2. Regular rate and rhythm. Abdomen: Positive bowel sounds in all 4 quadrants. Soft, nontender, nondistended. : Barnard in place. Normal external genitalia. Rectal: Deferred. Skin: Warm, dry. Intact. Extremities: 2+ radial pulses bilaterally. No lower extremity edema. Neuro: Sedated. laboratory and microbiology Laboratory Tests 11/04/24 04:00 Test 11/04/24 04:00 Range/Units Serum Glucose 92 74-106 mg/dL Assessment/Plan Impression: Acute hypoxic respiratory failure On mechanical ventilator Status epilepticus Multiple sclerosis Nicotine dependence Events: Remains on vent support On AC mode; RR 16, VT 500, PEEP 5, FiO2 30%. Sedated on Propofol, Versed ABG reviewed, compensated. CXR reviewed, demonstrates no acute opacities. Patient with hx of MS. Neurology recommendations appreciated. Brain MRI notable for moderate to large areas of confluent T2/FLAIR hyperintense signal in the centrum semiovale and mcnally radiata bilaterally correlating with multiple sclerosis. Keppra for seizures Follow up EEG. Pt had breakthrough seizure this AM. Start tapering sedation when Neurology clears. CPAP when Neurology clears. Continue antibiotics Labs and imaging reviewed. Rest of plan as noted below. Plan: s/p intubation on mechanical ventilator. Antiseizure medications - Keppra. Neurology recs appreciated. On AC mode; RR 16, VT 500, PEEP 5, FiO2 30%. Titrate FIO2 to keep O2 saturation above 90%. VAP bundle. Daily ABG and CXR while intubated Sedate for ventilator synchrony - Versed, Propofol drips. Start pressors if necessary to maintain a mean arterial blood pressure greater than 65 mmHg. IV fluids with NS 100 ml/hr. F/u Nephrology recommendations Monitor renal function Monitor electrolytes. Supplement as necessary. Monitor ins and outs. Smoking cessation discussed for greater than 10 minutes DVT prophylaxis - Lovenox SC. Prognosis: Poor given patient's multiple co-morbidities. Condition: Critical Rest of plan per hospitalist and other consultants. A total of 35 minutes of critical care time was spent reviewing the patient record, examining the patient, making a diagnostic and therapeutic plan, discussing this plan with the medical personnel, following up on diagnostic studies and following the patient for clinical stability excluding any and all procedures. At least 50% of this time was spent in direct, [id number] contact. Thank you Dr. Rusty Cain MD, for allowing me to participate in this patient's care. Further recommendations will depend on the patient's clinical course. Please do not hesitate to contact me if you have any questions or concerns. This medical document was created using an electronic medical record system with [employer] dictation system. Although these documentations are being carefully reviewed, there may still be some phonetic and typographical changes. The errors are purely typographical, due to imperfection on the software program, and do not reflect any compromise in the patient's medical care. Plan discussed with: Other (XANDER Fowler) Critical Care Time(min): 35 ALICE BLAKELY MD Nov 05, 2024 22:46
[2024-11-06] VITALS (105 sets, daily range): BP systolic 97–154; BP diastolic 56–91; PULSE 76–134; RESP 11–29; TEMP 97.7–101.7; O2SAT 96–100
[2024-11-06 04:17] LABS: Basophils # (auto) 0 10 ^3/uL (0-0.2); Basophils % (auto) 0.1 % (0.0-2.0); Eosinophils # (auto) 0.2 10 ^3/uL (0-0.8); Eosinophils % (auto) 1.5 % (0.0-7.0); Hematocrit 41.9 % (41.0-53.0); Hemoglobin 14.5 g/dL (13.5-17.5); Lymphocytes # (auto) 0.5 10 ^3/uL (0.4-5.4); Lymphocytes % (auto) 4.7 % (10.0-50.0); Mean Corpuscular Hemoglobin 31.4 pg (28.0-32.0); Mean Corpuscular Hgb Conc. 34.5 g/dL (32.0-36.0); Mean Corpuscular Volume 90.9 fL (80.0-100.0); Monocytes # (auto) 0.9 10 ^3/uL (0-1.3); Monocytes % (auto) 8.1 % (0.0-12.0); Neutrophils # (auto) 9.6 10 ^3/uL (1.6-8.6); Neutrophils % (auto) 85.6 % (37.0-80.0); Nucleated Red Blood Cells % 0.1 %; Platelet Count (auto) 144 10^3/uL (140-450); Red Blood Cells 4.61 10^6/uL (4.5-5.90); Red Cell Distribution Width 13.8 % (11.8-14.3); White Blood Cell 11.2 10^3/uL (4.4-10.8)
[2024-11-06 04:29] LABS: Alkaline Phosphatase 52 U/L (46-116); Aspartate Aminotransferase 15 U/L (13-40); Carbon Dioxide 27 mmol/L (20-31)
[2024-11-06 04:30] LABS: Anion Gap 4 (5-15); Bilirubin, Total 0.6 mg/dL (0.2-1.0); Sodium 142 mmol/L (136-145)
[2024-11-06 04:33] LABS: Alanine Aminotransferase < 9 U/L (7-40); Albumin 3.1 g/dL (3.2-4.8); Blood Urea Nitrogen 8 mg/dL (9-23); Calcium 8.1 mg/dL (8.7-10.4); Chloride 111 mmol/L (98-107); Glucose 188 mg/dL (74-106); Potassium 3.4 mmol/L (3.5-5.1); Total Protein 5.1 g/dL (5.7-8.2)
--- NOTE | 2024-11-06 05:29 | DVH ---
CHEST RADIOGRAPH Indication: INTUBATED Technique: Single frontal view of the chest was obtained COMPARISON: XY CHEST PORTABLE on DOS: 11/04/24, XY CHEST XRAY 1 VIEW on DOS: 11/03/24 FINDINGS: Lines and Tubes: Endotracheal tube is slightly high in position. Enteric catheter in satisfactory po sition. Lungs: Bilateral lower lobe airspace opacities. Pleura: No effusion. No pneumothorax. Cardiomediastinal contours: Unremarkable Bones: Unremarkable IMPRESSION: Recommend advancement of endotracheal tube by 2 cm.
--- NOTE | 2024-11-06 07:54 | DVHPN2 ---
Reviewed: Care Plan, H&P, Labs, Medications, Previous Orders, Radiology Changes from previous H/P or p: No Changes Objective Vitals Vital Signs Date Time Temp Pulse Resp B/P (MAP) Pulse Ox O2 Delivery O2 Flow Rate FiO2 11/06/24 07:15 97.7 83 16 104/63 (77) 99 207.9 11/06/24 06:33 30 11/06/24 06:00 Mechanical Ventilator+ 11/04/24 22:41 16 Intake/Output Intake and Output 11/06/24 07:00 Intake Total 1739.396 ml Output Total 1150 ml Balance 589.396 ml Intake Oral 0 ml IV Total 1739.396 ml Output Urine Total 1150 ml Stool Total 0 ml Medications Current Medications Medications Dose Ordered Sig/Lainey Route Start Time Stop Time Status Last Admin Dose Admin Propofol 100 ml @ 2.451 mls/ hr Q24H IV 11/03/24 03:00 11/06/24 06:16 12.255 MLS/HR Midazolam HCl 50 ml @ 1 mls/hr Q24H IV 11/03/24 04:00 11/06/24 04:25 10 MLS/HR Levetiracetam 100 ml @ 400 mls/hr BID IV 11/03/24 10:00 11/05/24 22:58 400 MLS/HR Ondansetron HCl 4 mg Q4HP PRN IV 11/03/24 05:00 Enoxaparin Sodium 40 mg DAILY SC 11/03/24 10:00 11/05/24 09:27 40 MG Acetaminophen 650 mg Q6HP PRN PO 11/03/24 05:00 11/05/24 17:13 650 MG Nitroglycerin 0.4 mg Q5MINP PRN SL 11/03/24 05:00 Morphine Sulfate 2 mg Q30M PRN IV 11/03/24 05:00 Albuterol 2.5 mg Q6HPRN PRN NEB 11/03/24 05:00 11/05/24 19:51 2.5 MG Lorazepam 1 mg Q5MINP PRN IV 11/03/24 14:00 11/05/24 04:32 1 MG Lorazepam 1 mg Q5MINP PRN IV 11/03/24 23:30 Patient Own Medication 40 mg MWF SC 11/05/24 10:00 11/05/24 11:34 40 MG Piperacillin Sod/ Tazobactam Sod 100 ml @ 25 mls/hr Q8HR IV 11/04/24 14:00 11/06/24 05:55 25 MLS/HR Dextrose/Sodium Chloride 1,000 ml @ 100 mls/hr Q10H IV 11/04/24 09:15 11/06/24 01:12 100 MLS/HR Laboratory Results Laboratory Tests 11/06/24 03:00 Chemistry Test 11/06/24 03:00 Albumin 3.1 g/dL (3.2-4.8) L Calcium Level 8.1 mg/dL (8.7-10.4) L Total Protein 5.1 g/dL (5.7-8.2) L LFT Test 11/06/24 03:00 Alanine Aminotransferase (ALT) < 9 U/L (7-40) Alkaline Phosphatase 52 U/L (46-116) Aspartate Amino Transferase (AST) 15 U/L (13-40) Total Bilirubin 0.6 mg/dL (0.2-1.0) Urinalysis Test 11/03/24 03:00 Urine Color Light-yellow (Yellow) Urine Clarity Clear (Clear) Urine pH 5.5 (5.0-9.0) Urine Specific Watkins 1.020 (1.001-1.035) Urine Protein 1+ (Negative) H Urine Ketones 1+ (Negative) H Urine Blood Trace /uL (Negative) H Urine Nitrite Negative (Negative) Urine Bilirubin Negative (Negative) Urine Urobilinogen Normal mg/dL (Negative) Urine Leukocyte Esterase Negative /uL (Negative) Urine RBC 3 /hpf (0 - 3) Urine WBC 2 /hpf (0 - 3) Urine Squamous Epithelial Cells None seen /hpf (<5) Urine Amorphous Crystals Few /hpf (None Seen) Urine Bacteria None seen /hpf (None Seen) Urine Glucose Normal mg/dL (Normal) Microbiology Microbiology Date/Time Source Procedure Growth Status 11/03/24 02:51 Sputum Gram Stain - Final Complete 11/03/24 02:51 Respiratory Culture - Final Klebsiella pneumoniae Complete Labs and/or images reviewed: Labs reviewed by me, Image(s) reviewed by me Assessment/Plan Assessment/Plan Acute hypoxic respiratory failure on mechanical ventilator 30 % FiO2, pulmonary consult by Dr. Ratliff appreciated Sepsis with the elevated white count possible aspiration pneumonia: Sputum cultures growing Klebsiella pneumoniae, DC Zosyn started on Rocaphin Status epilepticus History of seizures Multiple sclerosis: MRI brain and MRI C-spine confirmed the diagnosis of multiple sclerosis Nicotine dependence Noncompliance CT head negative MRI brain negative except for changes of multiple sclerosis Patient seen in the ICU bed 8. Full code Time spent 65 minutes Possible CPAP today Plan discussed with: Patient My Orders Orders - KARI MURILLO MD Procedure Category Date Status Time Chest Xray 1 View XY 11/06/24 Resulted 04:00 Mrsa Screen LIZANDRO 11/06/24 In Process 03:40 Date of Service: Nov 06, 2024 Billing Provider: KARI MURILLO MD Common Visit Codes: 69924-[id number] CARE 30-74 MIN KARI MURILLO MD Nov 06, 2024 07:54
[2024-11-06 08:28] LABS: Base Excess -2.5 mmol/L (-2.0-3.0)
[2024-11-06] MEDS: cefTRIAXone 1GM/50ML D5W 50 ML IV ONE (09:17)
--- NOTE | 2024-11-06 10:18 | DVHPN2 ---
Progress Note - Dictate Date Seen: Nov 06, 2024 Medical Necessity Reason Pt with a Central, PICC or Fol: Yes The following are medically ne: Barnard Catheter Subjective Mr Hamilton is a 34 yo male wit h a history of MS, sinclair's palsy. He was brought to the [facility] on 11/03/2024 for seizure activity. At this time, he is slight responds to stroke painful stimuli, sedated, intubated, the history is obtained from his sister, and chart review, talking to his nurse I saw him in 07/2013, 10/2013, 10/2014 for MS exacerbation and he received IV Solu-Medrol. I saw her on 04/22/2051 for medication reaction/MS exacerbation I have seen and examined the patient, discussed with his nurse, he was intubated, sedated, he responds to stroke painful stimuli, I noticed spontaneous blinking and eye movement Propofol 25 mcg/minutes, Versed 8 milligram/hour Urinalysis, 11/03/2024: Unremarkable UDS, 11/03/2024: Benzo, cannabinoids ABG, 11/03/2024: Respiratory acidosis CBC, 11/03/2024: Unremarkable WBC/HB/PLT/MCV, 11/04/2024: 15.4/16/184/90.5 CMP, 5 11/03/2024: Unremarkable Lactic acid, 11/03/2024: 5.9 EEG, 11/05/24: Remarkably abnormal EEG Chest x-ray, 11/03/2024: 1. No acute cardiopulmonary disease is seen. 2. Endotracheal tube noted with its distal end located approximately 4.8 cm proximal to the madelaine in appropriate position. 3. Nasogastric tube noted with its distal end below left hemidiaphragm, possibly in stomach, however, the tip is out of field of view. If more precise position of tube is required, suggest x-ray abdomen pre and post injection of 200 cc of air or 60ml of gastrografin. Lungs are clear and well expanded with no pulmonary infiltrate or pleural effusion. CT HEAD, 11/03/2024: No acute intracranial abnormality. MRi HEADACHE, 08/18/2013: Numerous patchy white matter signal abnormalities. Given the clinical history, this is suspicious for multiple sclerosis. Other causes of demyelination cannot be excluded MRI brain w 08/18/13: No enhancing lesions are seen. No evidence of mass MR head, 11/04/2024: 1. Moderate to large areas of confluent T2/FLAIR hyperintense signal in the centrum semiovale and mcnally radiata bilaterally correlating with reported clinical history of multiple sclerosis as detailed above. 2. No abnormal postcontrast enhancement. 3. No definite restricted diffusion in any of the lesions. 4. Paranasal sinus disease as described above MRI C-spine wwo, 11/04/2024: 1. Degenerative disease C4-5 associated with [id number] bilateral neural foraminal stenosis. No significant central canal stenosis. 2. Patchy abnormal cord signal throughout the cervical spine consistent with given history of multiple sclerosis. No abnormal enhancement to suggest active demyelination. Correlate with prior imaging if available to determine stability. Alternatively recommend continued follow-up MRA brain scan, 08/18/13: Unremarkable MRA of the brain vital signs Vital Sign Date Time Temp Pulse Resp B/P (MAP) Pulse Ox O2 Delivery O2 Flow Rate FiO2 11/06/24 09:25 88 19 103/66 (78) 100 30 11/06/24 09:00 98.4 209.1 11/06/24 08:00 Mechanical Ventilator+ 11/04/24 22:41 16 Total Intake and Output 11/05/24 11/05/24 11/06/24 15:00 23:00 07:00 Intake Total 253.472 ml 589.472 ml 896.452 ml Output Total 1150 ml Balance 253.472 ml 589.472 ml -253.548 ml medications Current Medications Medications Dose Ordered Sig/Lainey Route Start Time Stop Time Status Last Admin Dose Admin Propofol 100 ml @ 2.451 mls/ hr Q24H IV 11/03/24 03:00 11/06/24 06:16 12.255 MLS/HR Midazolam HCl 50 ml @ 1 mls/hr Q24H IV 11/03/24 04:00 11/06/24 04:25 10 MLS/HR Levetiracetam 100 ml @ 400 mls/hr BID IV 11/03/24 10:00 11/06/24 09:17 400 MLS/HR Ondansetron HCl 4 mg Q4HP PRN IV 11/03/24 05:00 Enoxaparin Sodium 40 mg DAILY SC 11/03/24 10:00 11/06/24 09:17 40 MG Acetaminophen 650 mg Q6HP PRN PO 11/03/24 05:00 11/05/24 17:13 650 MG Nitroglycerin 0.4 mg Q5MINP PRN SL 11/03/24 05:00 Morphine Sulfate 2 mg Q30M PRN IV 11/03/24 05:00 Albuterol 2.5 mg Q6HPRN PRN NEB 11/03/24 05:00 11/05/24 19:51 2.5 MG Lorazepam 1 mg Q5MINP PRN IV 11/03/24 23:30 Patient Own Medication 40 mg MWF SC 11/05/24 10:00 11/05/24 11:34 40 MG Dextrose/Sodium Chloride 1,000 ml @ 100 mls/hr Q10H IV 11/04/24 09:15 11/06/24 09:17 100 MLS/HR Ceftriaxone Sodium 50 ml @ 100 mls/hr DAILY@09 IV 11/07/24 09:00 objective The patient is well-nourished and well-developed with no distress. The patient is intubated MENTAL STATUS: Subjective CRANIAL NERVES: Pupils are equal, round and reactive.There are corneal reflexes and doll's eyes phenomenon. No signs of facial weakness. There are gagging or coughing reflexes SENSATION: Responses to strong pain stimuli. MOTOR: Normal tone in the upper and lower extremity. Normal muscle bulk. No fasciculations. No spontaneous movement. REFLEXES: Deep tendon reflexes are symmetrical. No pathological reflexes. CEREBELLAR/COORDINATION: Deferred GAIT/STATION: deferred laboratory and microbiology Laboratory Tests 11/06/24 03:00 Test 11/06/24 03:00 Range/Units Serum Glucose 188 H 74-106 mg/dL Problem List Status epileptics Grand mal seizure Poor compliance to treatment Multiple sclerosis Gait disturbance since 11/02/2024, to rule out MS exacerbation Assessment/Plan Monitoring Supportive treatment EEG MR brain wwo MRI T-spine wwo ICU care Stabilize vitals Respiratory support/vent management Keppra 1000 mg IV b.i.d. Ativan for seizure breakthrough Copaxone 40 mg subQ 3 times weekly DVT prophylaxis Will address compliance issue later F/U with Dr. Baez on D/C More recommendation per clinical course This medical document was created using an electronic medical record system with [employer] dictation system. Although this document has been carefully reviewed, there may still be some phonetic and typographical errors. These areas are purely typographical due to imperfections of the software programs, and do not reflect any compromise in the patient's medical care Prognosis Guarded Dietary Evaluation Review Comments: 1. Wehn medically feasible, offer a regular diet if his glucose is under control, or a CCHO-60 diet for hyperglycemic management. 2. If PO is not possible, and EN is acceptable, offer Jevity 40ml/hr providng 58 gProtein and 1152 kcal. alternatively, for better glucose control, provide glucerna 40ml/hr for the same amount of protein and kcal support. His protein needs needs to be supplemented by adding Clinmix 41ml/hr if remaining on vent. 3. If NPO > 7 days and EN not an option, consider TPN per pharmacy to meet his 75% needs. Expected Outcomes/Goals: Advance to diet. Plan discussed with: Other Critical Care Time(min): 30 ИРИНА STEPHENS MD Nov 06, 2024 10:17
[2024-11-06] MEDS: ACETAMINOPHEN 650 MG RECT SUPP PR PRN (16:17)
--- NOTE | 2024-11-06 21:52 | DVHPN2 ---
Progress Note - Dictate Date Seen: Nov 06, 2024 Medical Necessity Reason Pt with a Central, PICC or Fol: Yes The following are medically ne: Lopes Catheter Reason for lopes catheter: Strict I&O Subjective Patient seen and examined at bedside. Sedated, intubated on mechanical ventilator. Overnight events reviewed. vital signs Vital Sign Date Time Temp Pulse Resp B/P (MAP) Pulse Ox O2 Delivery O2 Flow Rate FiO2 11/06/24 20:15 109 16 100 Mechanical Ventilator+ 35 35 11/06/24 19:55 130/68 (88) 11/06/24 18:00 101.5 214.7 11/04/24 22:41 16 Total Intake and Output 11/05/24 11/05/24 11/06/24 15:00 23:00 07:00 Intake Total 253.472 ml 589.472 ml 896.452 ml Output Total 1150 ml Balance 253.472 ml 589.472 ml -253.548 ml medications Current Medications Medications Dose Ordered Sig/Lainey Route Start Time Stop Time Status Last Admin Dose Admin Propofol 100 ml @ 2.451 mls/ hr Q24H IV 11/03/24 03:00 11/06/24 06:16 12.255 MLS/HR Midazolam HCl 50 ml @ 1 mls/hr Q24H IV 11/03/24 04:00 11/06/24 04:25 10 MLS/HR Levetiracetam 100 ml @ 400 mls/hr BID IV 11/03/24 10:00 11/06/24 09:17 400 MLS/HR Ondansetron HCl 4 mg Q4HP PRN IV 11/03/24 05:00 Enoxaparin Sodium 40 mg DAILY SC 11/03/24 10:00 11/06/24 09:17 40 MG Nitroglycerin 0.4 mg Q5MINP PRN SL 11/03/24 05:00 Morphine Sulfate 2 mg Q30M PRN IV 11/03/24 05:00 Albuterol 2.5 mg Q6HPRN PRN NEB 11/03/24 05:00 11/05/24 19:51 2.5 MG Lorazepam 1 mg Q5MINP PRN IV 11/03/24 23:30 Patient Own Medication 40 mg MWF SC 11/05/24 10:00 11/05/24 11:34 40 MG Dextrose/Sodium Chloride 1,000 ml @ 100 mls/hr Q10H IV 11/04/24 09:15 11/06/24 19:34 100 MLS/HR Ceftriaxone Sodium 50 ml @ 100 mls/hr DAILY@09 IV 11/07/24 09:00 Acetaminophen 650 mg Q6HP PRN RI 11/06/24 15:30 11/06/24 16:17 650 MG objective Gen.: Patient lying in bed in medical ICU. Sedated, intubated on mechanical ventilator. Head: Normocephalic, atraumatic. Eyes: PERRLA. Ears: Normal external anatomy. Throat: Endotracheal tube and orogastric tube in place. Neck: Supple, trachea midline. Chest: Transmitted breath sounds bilaterally. Decreased air entry bilaterally. No wheezing. Bibasilar crackles. Cardiovascular: Positive S1, positive S2. Regular rate and rhythm. Abdomen: Positive bowel sounds in all 4 quadrants. Soft, nontender, nondistended. : Lopes in place. Normal external genitalia. Rectal: Deferred. Skin: Warm, dry. Intact. Extremities: 2+ radial pulses bilaterally. No lower extremity edema. Neuro: Sedated. laboratory and microbiology Laboratory Tests 11/06/24 03:00 Test 11/06/24 03:00 Range/Units Serum Glucose 188 H 74-106 mg/dL Assessment/Plan Impression: Acute hypoxic respiratory failure On mechanical ventilator Status epilepticus Multiple sclerosis Nicotine dependence Pneumonia, gram negative, klebsiella pneumonia Events: Remains on vent support On AC mode; RR 16, VT 500, PEEP 5, FiO2 30%. Sedated on Propofol, Versed ABG reviewed, compensated. CXR demonstrates bilateral lower lobe airspace opacities. Recommend advancement of endotracheal tube by 2 cm. Sputum CX grew Klebsiella pneumoniae On Zosyn, de-escalated to Ceftriaxone after reviewing sensitivities. Patient spiked fever Obtain blood cultures Labs and imaging reviewed. Rest of plan as noted below. Plan: s/p intubation on mechanical ventilator. Head CT showed no acute intracranial abnormalities Antiseizure medications - Keppra. Neurology recs appreciated. On AC mode; RR 16, VT 500, PEEP 5, FiO2 30%. Titrate FIO2 to keep O2 saturation above 90%. VAP bundle. Daily ABG and CXR while intubated Sedate for ventilator synchrony Start pressors if necessary to maintain a mean arterial blood pressure greater than 65 mmHg. IV fluids with NS 100 ml/hr. Nephrology recommendations appreciated Monitor renal function Monitor electrolytes. Supplement as necessary. Monitor ins and outs. Smoking cessation discussed for greater than 10 minutes DVT prophylaxis - Lovenox SC. Prognosis: Poor given patient's multiple co-morbidities. Condition: Critical Rest of plan per hospitalist and other consultants. A total of 35 minutes of critical care time was spent reviewing the patient record, examining the patient, making a diagnostic and therapeutic plan, discussing this plan with the medical personnel, following up on diagnostic studies and following the patient for clinical stability excluding any and all procedures. At least 50% of this time was spent in direct, [id number] contact. Thank you Dr. Rusty Cain MD, for allowing me to participate in this patient's care. Further recommendations will depend on the patient's clinical course. Please do not hesitate to contact me if you have any questions or concerns. This medical document was created using an electronic medical record system with [employer] dictation system. Although these documentations are being carefully reviewed, there may still be some phonetic and typographical changes. The errors are purely typographical, due to imperfection on the software program, and do not reflect any compromise in the patient's medical care. Dietary Evaluation Review Comments: 1. Wehn medically feasible, offer a regular diet if his glucose is under control, or a CCHO-60 diet for hyperglycemic management. 2. If PO is not possible, and EN is acceptable, offer Jevity 40ml/hr providng 58 gProtein and 1152 kcal. alternatively, for better glucose control, provide glucerna 40ml/hr for the same amount of protein and kcal support. His protein needs needs to be supplemented by adding Clinmix 41ml/hr if remaining on vent. 3. If NPO > 7 days and EN not an option, consider TPN per pharmacy to meet his 75% needs. Expected Outcomes/Goals: Advance to diet. Plan discussed with: Other (RN) Critical Care Time(min): 35 ALICE BLAKELY MD Nov 06, 2024 21:52
[2024-11-07] VITALS (75 sets, daily range): BP systolic 116–150; BP diastolic 68–99; PULSE 88–110; RESP 10–25; TEMP 99.5–100.8; O2SAT 96–100
[2024-11-07 04:14] LABS: Basophils # (auto) 0 10 ^3/uL (0-0.2); Basophils % (auto) 0.2 % (0.0-2.0); Eosinophils # (auto) 0.2 10 ^3/uL (0-0.8); Eosinophils % (auto) 1.5 % (0.0-7.0); Hematocrit 41.7 % (41.0-53.0); Hemoglobin 14.4 g/dL (13.5-17.5); Lymphocytes # (auto) 1.3 10 ^3/uL (0.4-5.4); Lymphocytes % (auto) 9.2 % (10.0-50.0); Mean Corpuscular Hemoglobin 31.2 pg (28.0-32.0); Mean Corpuscular Hgb Conc. 34.6 g/dL (32.0-36.0); Mean Corpuscular Volume 90.2 fL (80.0-100.0); Monocytes # (auto) 1.6 10 ^3/uL (0-1.3); Neutrophils # (auto) 11.3 10 ^3/uL (1.6-8.6); Neutrophils % (auto) 78.1 % (37.0-80.0); Nucleated Red Blood Cells % 0.1 %; Platelet Count (auto) 157 10^3/uL (140-450); Red Blood Cells 4.62 10^6/uL (4.5-5.90); Red Cell Distribution Width 13.5 % (11.8-14.3); White Blood Cell 14.4 10^3/uL (4.4-10.8)
[2024-11-07 04:17] LABS: Anion Gap 8 (5-15); Calcium 8.8 mg/dL (8.7-10.4); Carbon Dioxide 26 mmol/L (20-31); Potassium 3.5 mmol/L (3.5-5.1); Sodium 144 mmol/L (136-145)
[2024-11-07 04:26] LABS: Blood Urea Nitrogen 6 mg/dL (9-23); Chloride 110 mmol/L (98-107); Glucose 124 mg/dL (74-106)
--- NOTE | 2024-11-07 05:46 | DVH ---
CHEST RADIOGRAPH Indication: ON VENT Technique: Single frontal view of the chest was obtained COMPARISON: XY CHEST XRAY 1 VIEW on DOS: 11/06/24, XY CHEST PORTABLE on DOS: 11/04/24, XY CHEST XRAY 1 VIEW on DOS: 11/03/24 FINDINGS: Lines and Tubes: Endotracheal tube and enteric catheter in satisfactory position. Lungs: Patchy right lower lobe airspace disease. Pleura: No effusion. No pneumothorax. Cardiomediastinal contours: Unremarkable Bones: Unremarkable IMPRESSION: Lines and tubes in satisfactory position. No significant interval change.
--- NOTE | 2024-11-07 08:21 | DVHPN2 ---
Reviewed: Care Plan, H&P, Labs, Medications, Previous Orders, Radiology Changes from previous H/P or p: No Changes Objective Vitals Vital Signs Date Time Temp Pulse Resp B/P (MAP) Pulse Ox O2 Delivery O2 Flow Rate FiO2 11/07/24 07:47 96 25 130/82 (98) 100 35 11/07/24 06:45 100.4 212.7 11/07/24 05:41 Mechanical Ventilator+ Intake/Output Intake and Output 11/07/24 07:00 Intake Total 3391.961 ml Output Total 1125 ml Balance 2266.961 ml Intake Oral 0 ml IV Total 3391.961 ml Tube Feeding 0 ml Output Urine Total 1125 ml Stool Total 0 ml # Bowel Movements 1 Medications Current Medications Medications Dose Ordered Sig/Lainey Route Start Time Stop Time Status Last Admin Dose Admin Propofol 100 ml @ 2.451 mls/ hr Q24H IV 11/03/24 03:00 11/07/24 05:35 12.255 MLS/HR Midazolam HCl 50 ml @ 1 mls/hr Q24H IV 11/03/24 04:00 11/06/24 04:25 10 MLS/HR Levetiracetam 100 ml @ 400 mls/hr BID IV 11/03/24 10:00 11/06/24 21:59 400 MLS/HR Ondansetron HCl 4 mg Q4HP PRN IV 11/03/24 05:00 Enoxaparin Sodium 40 mg DAILY SC 11/03/24 10:00 11/06/24 09:17 40 MG Nitroglycerin 0.4 mg Q5MINP PRN SL 11/03/24 05:00 Morphine Sulfate 2 mg Q30M PRN IV 11/03/24 05:00 Albuterol 2.5 mg Q6HPRN PRN NEB 11/03/24 05:00 11/05/24 19:51 2.5 MG Lorazepam 1 mg Q5MINP PRN IV 11/03/24 23:30 Patient Own Medication 40 mg MWF SC 11/05/24 10:00 11/05/24 11:34 40 MG Dextrose/Sodium Chloride 1,000 ml @ 100 mls/hr Q10H IV 11/04/24 09:15 11/07/24 05:32 100 MLS/HR Ceftriaxone Sodium 50 ml @ 100 mls/hr DAILY@09 IV 11/07/24 09:00 Acetaminophen 650 mg Q6HP PRN NC 11/06/24 15:30 11/07/24 02:13 650 MG Laboratory Results Laboratory Tests 11/07/24 03:22 Chemistry Test 11/07/24 03:22 Calcium Level 8.8 mg/dL (8.7-10.4) Urinalysis Test 11/03/24 03:00 Urine Color Light-yellow (Yellow) Urine Clarity Clear (Clear) Urine pH 5.5 (5.0-9.0) Urine Specific [place] 1.020 (1.001-1.035) Urine Protein 1+ (Negative) H Urine Ketones 1+ (Negative) H Urine Blood Trace /uL (Negative) H Urine Nitrite Negative (Negative) Urine Bilirubin Negative (Negative) Urine Urobilinogen Normal mg/dL (Negative) Urine Leukocyte Esterase Negative /uL (Negative) Urine RBC 3 /hpf (0 - 3) Urine WBC 2 /hpf (0 - 3) Urine Squamous Epithelial Cells None seen /hpf (<5) Urine Amorphous Crystals Few /hpf (None Seen) Urine Bacteria None seen /hpf (None Seen) Urine Glucose Normal mg/dL (Normal) Microbiology Microbiology Date/Time Source Procedure Growth Status 11/06/24 00:19 Nose MRSA Screen - Final Complete 11/03/24 02:51 Sputum Gram Stain - Final Complete 11/03/24 02:51 Respiratory Culture - Final Klebsiella pneumoniae Complete Labs and/or images reviewed: Labs reviewed by me, Image(s) reviewed by me Assessment/Plan Assessment/Plan Acute hypoxic respiratory failure on mechanical ventilator 30 % FiO2, pulmonary consult by Dr. Ratliff appreciated Sepsis with the elevated white count possible aspiration pneumonia: Sputum cultures growing Klebsiella pneumoniae, DC Zosyn started on Rocaphin Status epilepticus History of seizures Multiple sclerosis: MRI brain and MRI C-spine confirmed the diagnosis of multiple sclerosis Nicotine dependence Noncompliance CT head negative MRI brain negative except for changes of multiple sclerosis Patient seen in the ICU bed 8. Full code Time spent 55 minutes Possible CPAP today Plan discussed with: Patient My Orders Orders - KARI MURILLO MD Procedure Category Date Status Time Acetaminophen PHA 11/06/24 In Process Suppository (Tylenol 15:30 Date of Service: Nov 07, 2024 Billing Provider: KARI MURILLO MD Common Visit Codes: [id number] INP/OBS CARE(HIGH) KARI MURILLO MD Nov 07, 2024 08:21
[2024-11-07] MEDS ORDERED: IBUPROFEN 100MG/5ML ORAL SUSP 100 MG/5 ML UD GT PRN (09:30)
[2024-11-07 10:12] LABS: Base Excess -1.3 mmol/L (-2.0-3.0)
[2024-11-07] MEDS: cefTRIAXone 1GM/50ML D5W 50 ML IV SCH (10:36)
--- NOTE | 2024-11-07 16:02 | DVHPN2 ---
Progress Note - Dictate Date Seen: Nov 07, 2024 Medical Necessity Reason Pt with a Central, PICC or Fol: Yes The following are medically ne: Lopes Catheter Reason for lopes catheter: Strict I&O Subjective Patient seen and examined at bedside. Intubated on mechanical ventilator. Overnight events reviewed. vital signs Vital Sign Date Time Temp Pulse Resp B/P (MAP) Pulse Ox O2 Delivery O2 Flow Rate FiO2 11/07/24 13:00 100.2 101 12 135/78 (97) 99 212.4 11/07/24 12:00 Cool Aerosol 12 40 40 Total Intake and Output 11/06/24 11/06/24 11/07/24 15:00 23:00 07:00 Intake Total 1337.450 ml 1237.765 ml 926.550 ml Output Total 675 ml 450 ml Balance 1337.450 ml 562.765 ml 476.550 ml medications Current Medications Medications Dose Ordered Sig/Lainey Route Start Time Stop Time Status Last Admin Dose Admin Propofol 100 ml @ 2.451 mls/ hr Q24H IV 11/03/24 03:00 11/07/24 05:35 12.255 MLS/HR Midazolam HCl 50 ml @ 1 mls/hr Q24H IV 11/03/24 04:00 11/06/24 04:25 10 MLS/HR Levetiracetam 100 ml @ 400 mls/hr BID IV 11/03/24 10:00 11/07/24 10:34 400 MLS/HR Ondansetron HCl 4 mg Q4HP PRN IV 11/03/24 05:00 Enoxaparin Sodium 40 mg DAILY SC 11/03/24 10:00 11/07/24 10:33 40 MG Nitroglycerin 0.4 mg Q5MINP PRN SL 11/03/24 05:00 Morphine Sulfate 2 mg Q30M PRN IV 11/03/24 05:00 Albuterol 2.5 mg Q6HPRN PRN NEB 11/03/24 05:00 11/05/24 19:51 2.5 MG Lorazepam 1 mg Q5MINP PRN IV 11/03/24 23:30 Patient Own Medication 40 mg MWF SC 11/05/24 10:00 11/07/24 10:35 40 MG Dextrose/Sodium Chloride 1,000 ml @ 100 mls/hr Q10H IV 11/04/24 09:15 11/07/24 15:30 100 MLS/HR Ceftriaxone Sodium 50 ml @ 100 mls/hr DAILY@09 IV 11/07/24 09:00 11/07/24 10:36 100 MLS/HR Acetaminophen 650 mg Q6HP PRN PA 11/06/24 15:30 11/07/24 02:13 650 MG Ibuprofen 600 mg Q6HP PRN GT 11/07/24 09:30 objective Gen.: Patient lying in bed in medical ICU. Intubated on mechanical ventilator. Head: Normocephalic, atraumatic. Eyes: PERRLA. Ears: Normal external anatomy. Throat: Endotracheal tube and orogastric tube in place. Neck: Supple, trachea midline. Chest: Transmitted breath sounds bilaterally. Decreased air entry bilaterally. No wheezing. Bibasilar crackles. Cardiovascular: Positive S1, positive S2. Regular rate and rhythm. Abdomen: Positive bowel sounds in all 4 quadrants. Soft, nontender, nondistended. : Lopes in place. Normal external genitalia. Rectal: Deferred. Skin: Warm, dry. Intact. Extremities: 2+ radial pulses bilaterally. No lower extremity edema. Neuro: Off sedation laboratory and microbiology Laboratory Tests 11/07/24 03:22 Test 11/07/24 03:22 Range/Units Serum Glucose 124 H 74-106 mg/dL Assessment/Plan Impression: Acute hypoxic respiratory failure On mechanical ventilator Status epilepticus Multiple sclerosis Nicotine dependence Pneumonia, gram negative, klebsiella pneumonia Events: Off sedation On CPAP with PS 8, PEEP of 5 Patient is awake, alert, following commands. Tolerated CPAP Weaning parameters and ABG reviewed. Continue antibiotics Blood cultures show no growth x24 hours. Head of bed elevation Aspiration precautions. Follow up Neurology recs. Labs and imaging reviewed. Rest of plan as noted below. Plan: s/p intubation on mechanical ventilator. Head CT showed no acute intracranial abnormalities Antiseizure medications - Keppra. Neurology recs appreciated. On AC mode; RR 16, VT 500, PEEP 5, FiO2 35%. Titrate FIO2 to keep O2 saturation above 90%. VAP bundle. Daily ABG and CXR while intubated Off sedation Start pressors if necessary to maintain a mean arterial blood pressure greater than 65 mmHg. IV fluids with NS 100 ml/hr. Nephrology recommendations appreciated Monitor renal function Monitor electrolytes. Supplement as necessary. Monitor ins and outs. Smoking cessation discussed for greater than 10 minutes DVT prophylaxis - Lovenox SC. Prognosis: Poor given patient's multiple co-morbidities. Condition: Critical Rest of plan per hospitalist and other consultants. A total of 35 minutes of critical care time was spent reviewing the patient record, examining the patient, making a diagnostic and therapeutic plan, discussing this plan with the medical personnel, following up on diagnostic studies and following the patient for clinical stability excluding any and all procedures. At least 50% of this time was spent in direct, [id number] contact. Thank you Dr. Rusty Cain MD, for allowing me to participate in this patient's care. Further recommendations will depend on the patient's clinical course. Please do not hesitate to contact me if you have any questions or concerns. This medical document was created using an electronic medical record system with [employer] dictation system. Although these documentations are being carefully reviewed, there may still be some phonetic and typographical changes. The errors are purely typographical, due to imperfection on the software program, and do not reflect any compromise in the patient's medical care. Dietary Evaluation Review Comments: 1. Wehn medically feasible, offer a regular diet if his glucose is under control, or a CCHO-60 diet for hyperglycemic management. 2. If PO is not possible, and EN is acceptable, offer Jevity 40ml/hr providng 58 gProtein and 1152 kcal. alternatively, for better glucose control, provide glucerna 40ml/hr for the same amount of protein and kcal support. His protein needs needs to be supplemented by adding Clinmix 41ml/hr if remaining on vent. 3. If NPO > 7 days and EN not an option, consider TPN per pharmacy to meet his 75% needs. Expected Outcomes/Goals: Advance to diet. Plan discussed with: Other (XANDER Cheng) Critical Care Time(min): 35 ALICE BLAKELY MD Nov 07, 2024 16:02
--- NOTE | 2024-11-07 21:02 | DVHPN2 ---
Progress Note - Dictate Date Seen: Nov 07, 2024 Medical Necessity Reason Pt with a Central, PICC or Fol: Yes The following are medically ne: Lopes Catheter Reason for lopes catheter: Strict I&O Subjective Mr Hamilton is a 34 yo male wit h a history of MS, sinclair's palsy. He was brought to the [facility] on 11/03/2024 for seizure activity. At this time, he is slight responds to stroke painful stimuli, sedated, intubated, the history is obtained from his sister, and chart review, talking to his nurse I saw him in 07/2013, 10/2013, 10/2014 for MS exacerbation and he received IV Solu-Medrol. I saw her on 04/22/2051 for medication reaction/MS exacerbation I have seen and examined the patient, discussed with his nurse and other medical staff, he was extubated, looks weak, oriented to person, place, he confirms being off Keppra for a few days, but he does not confirm gait disturbance No seizure activity Urinalysis, 11/03/2024: Unremarkable UDS, 11/03/2024: Benzo, cannabinoids ABG, 11/03/2024: Respiratory acidosis CBC, 11/03/2024: Unremarkable WBC/HB/PLT/MCV, 11/04/2024: 15.4/16/184/90.5 CMP, 5 11/03/2024: Unremarkable Lactic acid, 11/03/2024: 5.9 EEG, 11/05/24: Remarkably abnormal EEG Chest x-ray, 11/03/2024: 1. No acute cardiopulmonary disease is seen. 2. Endotracheal tube noted with its distal end located approximately 4.8 cm proximal to the madelaine in appropriate position. 3. Nasogastric tube noted with its distal end below left hemidiaphragm, possibly in stomach, however, the tip is out of field of view. If more precise position of tube is required, suggest x-ray abdomen pre and post injection of 200 cc of air or 60ml of gastrografin. Lungs are clear and well expanded with no pulmonary infiltrate or pleural effusion. CT HEAD, 11/03/2024: No acute intracranial abnormality. MRi HEADACHE, 08/18/2013: Numerous patchy white matter signal abnormalities. Given the clinical history, this is suspicious for multiple sclerosis. Other causes of demyelination cannot be excluded MRI brain w 08/18/13: No enhancing lesions are seen. No evidence of mass MR head, 11/04/2024: 1. Moderate to large areas of confluent T2/FLAIR hyperintense signal in the centrum semiovale and mcnally radiata bilaterally correlating with reported clinical history of multiple sclerosis as detailed above. 2. No abnormal postcontrast enhancement. 3. No definite restricted diffusion in any of the lesions. 4. Paranasal sinus disease as described above MRI C-spine wwo, 11/04/2024: 1. Degenerative disease C4-5 associated with [id number] bilateral neural foraminal stenosis. No significant central canal stenosis. 2. Patchy abnormal cord signal throughout the cervical spine consistent with given history of multiple sclerosis. No abnormal enhancement to suggest active demyelination. Correlate with prior imaging if available to determine stability. Alternatively recommend continued follow-up MRA brain scan, 08/18/13: Unremarkable MRA of the brain vital signs Vital Sign Date Time Temp Pulse Resp B/P (MAP) Pulse Ox O2 Delivery O2 Flow Rate FiO2 11/07/24 19:13 99 Nasal Cannula* 3 32 11/07/24 18:00 16 11/07/24 16:00 100.3 91 130/83 (99) 100.3 Total Intake and Output 11/06/24 11/06/24 11/07/24 15:00 23:00 07:00 Intake Total 1337.450 ml 1237.765 ml 926.550 ml Output Total 675 ml 450 ml Balance 1337.450 ml 562.765 ml 476.550 ml medications Current Medications Medications Dose Ordered Sig/Lainey Route Start Time Stop Time Status Last Admin Dose Admin Propofol 100 ml @ 2.451 mls/ hr Q24H IV 11/03/24 03:00 11/07/24 05:35 12.255 MLS/HR Midazolam HCl 50 ml @ 1 mls/hr Q24H IV 11/03/24 04:00 11/06/24 04:25 10 MLS/HR Levetiracetam 100 ml @ 400 mls/hr BID IV 11/03/24 10:00 11/07/24 10:34 400 MLS/HR Ondansetron HCl 4 mg Q4HP PRN IV 11/03/24 05:00 Enoxaparin Sodium 40 mg DAILY SC 11/03/24 10:00 11/07/24 10:33 40 MG Nitroglycerin 0.4 mg Q5MINP PRN SL 11/03/24 05:00 Morphine Sulfate 2 mg Q30M PRN IV 11/03/24 05:00 Albuterol 2.5 mg Q6HPRN PRN NEB 11/03/24 05:00 11/05/24 19:51 2.5 MG Lorazepam 1 mg Q5MINP PRN IV 11/03/24 23:30 Patient Own Medication 40 mg MWF SC 11/05/24 10:00 11/07/24 10:35 40 MG Dextrose/Sodium Chloride 1,000 ml @ 100 mls/hr Q10H IV 11/04/24 09:15 11/07/24 15:30 100 MLS/HR Ceftriaxone Sodium 50 ml @ 100 mls/hr DAILY@09 IV 11/07/24 09:00 11/07/24 10:36 100 MLS/HR Acetaminophen 650 mg Q6HP PRN MA 11/06/24 15:30 11/07/24 02:13 650 MG Ibuprofen 600 mg Q6HP PRN GT 11/07/24 09:30 objective The patient is well-nourished and well-developed with no distress. MENTAL STATUS: Subjective CRANIAL NERVES: Pupils are equal round and reactive to light briskly, normal external eye movement, normal sensation and motor examination in the lateral trigeminal nerve distribution, no facial weakness. SENSATION: Okay to pinprick and light touch MOTOR: Normal tone in the upper and lower extremity. Normal muscle bulk. No fasciculations. He moves the arms and legs REFLEXES: Deep tendon reflexes are symmetrical. No pathological reflexes. CEREBELLAR/COORDINATION: No ataxia GAIT/STATION: deferred laboratory and microbiology Laboratory Tests 11/07/24 03:22 Test 11/07/24 03:22 Range/Units Serum Glucose 124 H 74-106 mg/dL Problem List Status epileptics Grand mal seizure Poor compliance to treatment Multiple sclerosis Gait disturbance since 11/02/2024, to rule out MS exacerbation Assessment/Plan Monitoring Supportive treatment EEG MR brain wwo MRI T-spine wwo Keppra 1000 mg IV b.i.d. Ativan for seizure breakthrough Copaxone 40 mg subQ 3 times weekly DVT prophylaxis Will address compliance issue later F/U with Dr. Baez on D/C More history from him Re: Gait disturbance/MS exacerbation More recommendation per clinical course This medical document was created using an electronic medical record system with [employer] dictation system. Although this document has been carefully reviewed, there may still be some phonetic and typographical errors. These areas are purely typographical due to imperfections of the software programs, and do not reflect any compromise in the patient's medical care Prognosis poor Dietary Evaluation Review Comments: 1. Wehn medically feasible, offer a regular diet if his glucose is under control, or a CCHO-60 diet for hyperglycemic management. 2. If PO is not possible, and EN is acceptable, offer Jevity 40ml/hr providng 58 gProtein and 1152 kcal. alternatively, for better glucose control, provide glucerna 40ml/hr for the same amount of protein and kcal support. His protein needs needs to be supplemented by adding Clinmix 41ml/hr if remaining on vent. 3. If NPO > 7 days and EN not an option, consider TPN per pharmacy to meet his 75% needs. Expected Outcomes/Goals: Advance to diet. Plan discussed with: Patient, Other Total Time (mins): 35 ИРИНА STEPHENS MD Nov 07, 2024 21:02
[2024-11-08] VITALS (10 sets, daily range): BP systolic 118–144; BP diastolic 65–89; PULSE 75–99; RESP 17–20; TEMP 98.6–100.5; O2SAT 75–97
--- NOTE | 2024-11-08 09:46 | DVHPN2 ---
Reviewed: Care Plan, H&P, Labs, Medications, Previous Orders, Radiology Changes from previous H/P or p: No Changes Objective Vitals Vital Signs Date Time Temp Pulse Resp B/P (MAP) Pulse Ox O2 Delivery O2 Flow Rate FiO2 11/08/24 05:00 99.6 89 19 118/79 (92) 95 99.6 11/07/24 20:00 Nasal Cannula* 3 32 Intake/Output Intake and Output 11/08/24 07:00 Intake Total 2000 ml Balance 2000 ml IV Total 2000 ml Medications Current Medications Medications Dose Ordered Sig/Lainey Route Start Time Stop Time Status Last Admin Dose Admin Propofol 100 ml @ 2.451 mls/ hr Q24H IV 11/03/24 03:00 11/07/24 05:35 12.255 MLS/HR Midazolam HCl 50 ml @ 1 mls/hr Q24H IV 11/03/24 04:00 11/06/24 04:25 10 MLS/HR Levetiracetam 100 ml @ 400 mls/hr BID IV 11/03/24 10:00 11/07/24 21:30 400 MLS/HR Ondansetron HCl 4 mg Q4HP PRN IV 11/03/24 05:00 Enoxaparin Sodium 40 mg DAILY SC 11/03/24 10:00 11/07/24 10:33 40 MG Nitroglycerin 0.4 mg Q5MINP PRN SL 11/03/24 05:00 Morphine Sulfate 2 mg Q30M PRN IV 11/03/24 05:00 Albuterol 2.5 mg Q6HPRN PRN NEB 11/03/24 05:00 11/05/24 19:51 2.5 MG Lorazepam 1 mg Q5MINP PRN IV 11/03/24 23:30 Patient Own Medication 40 mg MWF SC 11/05/24 10:00 11/07/24 10:35 40 MG Dextrose/Sodium Chloride 1,000 ml @ 100 mls/hr Q10H IV 11/04/24 09:15 11/08/24 04:33 100 MLS/HR Ceftriaxone Sodium 50 ml @ 100 mls/hr DAILY@09 IV 11/07/24 09:00 11/08/24 08:27 100 MLS/HR Acetaminophen 650 mg Q6HP PRN [place] 11/06/24 15:30 11/07/24 23:29 650 MG Ibuprofen 600 mg Q6HP PRN GT 11/07/24 09:30 Laboratory Results Laboratory Tests 11/07/24 03:22 Urinalysis Test 11/03/24 03:00 Urine Color Light-yellow (Yellow) Urine Clarity Clear (Clear) Urine pH 5.5 (5.0-9.0) Urine Specific [place] 1.020 (1.001-1.035) Urine Protein 1+ (Negative) H Urine Ketones 1+ (Negative) H Urine Blood Trace /uL (Negative) H Urine Nitrite Negative (Negative) Urine Bilirubin Negative (Negative) Urine Urobilinogen Normal mg/dL (Negative) Urine Leukocyte Esterase Negative /uL (Negative) Urine RBC 3 /hpf (0 - 3) Urine WBC 2 /hpf (0 - 3) Urine Squamous Epithelial Cells None seen /hpf (<5) Urine Amorphous Crystals Few /hpf (None Seen) Urine Bacteria None seen /hpf (None Seen) Urine Glucose Normal mg/dL (Normal) Blood Gas Results Test 11/07/24 10:01 Arterial Blood pH 7.427 (7.350-7.450) FiO2 % 35.0 Microbiology Microbiology Date/Time Source Procedure Growth Status 11/06/24 17:46 Blood Blood Culture - Preliminary NO GROWTH AFTER 24 HOURS OF INCUBATION. Resulted 11/06/24 00:19 Nose MRSA Screen - Final Complete 11/03/24 02:51 Sputum Gram Stain - Final Complete 11/03/24 02:51 Respiratory Culture - Final Klebsiella pneumoniae Complete Labs and/or images reviewed: Labs reviewed by me, Image(s) reviewed by me Assessment/Plan Assessment/Plan Acute hypoxic respiratory failure intubated, extubated on 11/07/[address] Ratliff appreciated Sepsis with the elevated white count possible aspiration pneumonia: Sputum cultures growing Klebsiella pneumoniae, DC Zosyn started on Rocaphin Status epilepticus History of seizures Multiple sclerosis: MRI brain and MRI C-spine confirmed the diagnosis of multiple sclerosis Nicotine dependence Noncompliance CT head negative MRI brain negative except for changes of multiple sclerosis Seen in the med surg Full code Time spent 45 minutes Plan discussed with: Patient Date of Service: Nov 08, 2024 Billing Provider: KARI MURILLO MD Common Visit Codes: [id number] INP/OBS CARE(HIGH) KARI MURILLO MD Nov 08, 2024 09:46
--- NOTE | 2024-11-08 11:24 | DVHPN2 ---
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 He was brought to the [facility] on 11/03/2024 for seizure activity. At this time, he is slight responds to stroke painful stimuli, sedated, intubated, the history is obtained from his sister, and chart review, talking to his nurse I saw him in 07/2013, 10/2013, 10/2014 for MS exacerbation and he received IV Solu-Medrol. I saw her on 04/22/2051 for medication reaction/MS exacerbation I have seen and examined the patient, discussed with his nurse, sitter and other medical staff, he keeps improving, voice stronger, moves the extremity more than yesterday, but he is still only oriented x2, he does not confirm worsening gait disturbance before he came to the hospital No seizure activity I had a chance to talk to his sister. She confirmed the history he gave me p reviously, including the gait disturbance a few days prior to this admission. She was reports the patient has mild right-sided weakness She was worries about brain damage caused by the seizure activity, in the [facility] prognosis Urinalysis, 11/03/2024: Unremarkable UDS, 11/03/2024: Benzo, cannabinoids ABG, 11/03/2024: Respiratory acidosis CBC, 11/03/2024: Unremarkable WBC/HB/PLT/MCV, 11/04/2024: 15.4/16/184/90.5 CMP, 5 11/03/2024: Unremarkable Lactic acid, 11/03/2024: 5.9 EEG, 11/05/24: Remarkably abnormal EEG Chest x-ray, 11/03/2024: 1. No acute cardiopulmonary disease is seen. 2. Endotracheal tube noted with its distal end located approximately 4.8 cm proximal to the madelaine in appropriate position. 3. Nasogastric tube noted with its distal end below left hemidiaphragm, possibly in stomach, however, the tip is out of field of view. If more precise position of tube is required, suggest x-ray abdomen pre and post injection of 200 cc of air or 60ml of gastrografin. Lungs are clear and well expanded with no pulmonary infiltrate or pleural effusion. CT HEAD, 11/03/2024: No acute intracranial abnormality. MRi HEADACHE, 08/18/2013: Numerous patchy white matter signal abnormalities. Given the clinical history, this is suspicious for multiple sclerosis. Other causes of demyelination cannot be excluded MRI brain w 08/18/13: No enhancing lesions are seen. No evidence of mass MR head, 11/04/2024: 1. Moderate to large areas of confluent T2/FLAIR hyperintense signal in the centrum semiovale and mcnally radiata bilaterally correlating with reported clinical history of multiple sclerosis as detailed above. 2. No abnormal postcontrast enhancement. 3. No definite restricted diffusion in any of the lesions. 4. Paranasal sinus disease as described above MRI C-spine wwo, 11/04/2024: 1. Degenerative disease C4-5 associated with [id number] bilateral neural foraminal stenosis. No significant central canal stenosis. 2. Patchy abnormal cord signal throughout the cervical spine consistent with given history of multiple sclerosis. No abnormal enhancement to suggest active demyelination. Correlate with prior imaging if available to determine stability. Alternatively recommend continued follow-up MRA brain scan, 08/18/13: Unremarkable MRA of the brain vital signs Vital Sign Date Time Temp Pulse Resp B/P (MAP) Pulse Ox O2 Delivery O2 Flow Rate FiO2 11/08/24 05:00 99.6 89 19 118/79 (92) 95 99.6 11/07/24 20:00 Nasal Cannula* 3 32 Total Intake and Output 11/07/24 11/07/24 11/08/24 15:00 23:00 07:00 Intake Total 900 ml 200 ml 900 ml Balance 900 ml 200 ml 900 ml medications Current Medications Medications Dose Ordered Sig/Lainey Route Start Time Stop Time Status Last Admin Dose Admin Propofol 100 ml @ 2.451 mls/ hr Q24H IV 11/03/24 03:00 11/07/24 05:35 12.255 MLS/HR Midazolam HCl 50 ml @ 1 mls/hr Q24H IV 11/03/24 04:00 11/06/24 04:25 10 MLS/HR Levetiracetam 100 ml @ 400 mls/hr BID IV 11/03/24 10:00 11/08/24 09:56 400 MLS/HR Ondansetron HCl 4 mg Q4HP PRN IV 11/03/24 05:00 Enoxaparin Sodium 40 mg DAILY SC 11/03/24 10:00 11/08/24 09:56 40 MG Nitroglycerin 0.4 mg Q5MINP PRN SL 11/03/24 05:00 Morphine Sulfate 2 mg Q30M PRN IV 11/03/24 05:00 Albuterol 2.5 mg Q6HPRN PRN NEB 11/03/24 05:00 11/05/24 19:51 2.5 MG Lorazepam 1 mg Q5MINP PRN IV 11/03/24 23:30 Patient Own Medication 40 mg MWF SC 11/05/24 10:00 11/07/24 10:35 40 MG Dextrose/Sodium Chloride 1,000 ml @ 100 mls/hr Q10H IV 11/04/24 09:15 11/08/24 04:33 100 MLS/HR Ceftriaxone Sodium 50 ml @ 100 mls/hr DAILY@09 IV 11/07/24 09:00 11/08/24 08:27 100 MLS/HR Acetaminophen 650 mg Q6HP PRN ID 11/06/24 15:30 11/07/24 23:29 650 MG Ibuprofen 600 mg Q6HP PRN GT 11/07/24 09:30 objective The patient is well-nourished and well-developed with no distress. MENTAL STATUS: Subjective CRANIAL NERVES: Pupils are equal round and reactive to light briskly, normal external eye movement, normal sensation and motor examination in the lateral trigeminal nerve distribution, no facial weakness. SENSATION: Okay to pinprick and light touch MOTOR: Normal tone in the upper and lower extremity. Normal muscle bulk. No fasciculations. He moves the arms and legs, but right side is 4/5, weakness in the left side REFLEXES: Deep tendon reflexes are symmetrical. No pathological reflexes. CEREBELLAR/COORDINATION: No ataxia GAIT/STATION: deferred laboratory and microbiology Laboratory Tests 11/07/24 03:22 Test 11/07/24 03:22 Range/Units Serum Glucose 124 H 74-106 mg/dL Problem List Status epileptics Grand mal seizure Poor compliance to treatment Multiple sclerosis Gait disturbance since 11/02/2024, to rule out MS exacerbation Assessment/Plan Monitoring Supportive treatment MR brain wwo MRI T-spine wwo Keppra 1000 mg IV b.i.d. Ativan for seizure breakthrough Copaxone 40 mg subQ 3 times weekly DVT prophylaxis Up to chair Physical therapy Will address compliance issue later F/U with Dr. Baez on D/C More history from him Re: Gait disturbance/MS exacerbation More recommendation per clinical course This medical document was created using an electronic medical record system with Cue dictation system. Although this document has been carefully reviewed, there may still be some phonetic and typographical errors. These areas are purely typographical due to imperfections of the software programs, and do not reflect any compromise in the patient's medical care Prognosis poor Dietary Evaluation Review Comments: 1. Wehn medically feasible, offer a regular diet if his glucose is under control, or a CCHO-60 diet for hyperglycemic management. 2. If PO is not possible, and EN is acceptable, offer Jevity 40ml/hr providng 58 gProtein and 1152 kcal. alternatively, for better glucose control, provide glucerna 40ml/hr for the same amount of protein and kcal support. His protein needs needs to be supplemented by adding Clinmix 41ml/hr if remaining on vent. 3. If NPO > 7 days and EN not an option, consider TPN per pharmacy to meet his 75% needs. Expected Outcomes/Goals: Advance to diet. Plan discussed with: Other Total Time (mins): 40 ИРИНА STEPHENS MD Nov 08, 2024 11:24
[2024-11-08] MEDS ORDERED: LORazepam 2MG/ML-1ML VIAL IV PRN (11:30)
[2024-11-09] VITALS (10 sets, daily range): BP systolic 126–144; BP diastolic 78–90; PULSE 76–94; RESP 17–20; TEMP 98.1–98.8; O2SAT 94–99
--- NOTE | 2024-11-09 09:21 | DVHPN2 ---
Reviewed: Care Plan, H&P, Labs, Medications, Previous Orders, Radiology Changes from previous H/P or p: No Changes Objective Vitals Vital Signs Date Time Temp Pulse Resp B/P (MAP) Pulse Ox O2 Delivery O2 Flow Rate FiO2 11/09/24 05:00 98.8 86 18 135/87 (103) 94 98.8 11/09/24 02:40 0.0 21 11/08/24 22:09 Room Air* Intake/Output Intake and Output 11/09/24 07:00 Intake Total 1350 ml Output Total 575 ml Balance 775 ml Intake Oral 0 ml IV Total 1350 ml Output Urine Total 575 ml Medications Current Medications Medications Dose Ordered Sig/Lainey Route Start Time Stop Time Status Last Admin Dose Admin Levetiracetam 100 ml @ 400 mls/hr BID IV 11/03/24 10:00 11/08/24 21:34 400 MLS/HR Ondansetron HCl 4 mg Q4HP PRN IV 11/03/24 05:00 Enoxaparin Sodium 40 mg DAILY SC 11/03/24 10:00 11/08/24 09:56 40 MG Nitroglycerin 0.4 mg Q5MINP PRN SL 11/03/24 05:00 Morphine Sulfate 2 mg Q30M PRN IV 11/03/24 05:00 Albuterol 2.5 mg Q6HPRN PRN NEB 11/03/24 05:00 11/05/24 19:51 2.5 MG Lorazepam 1 mg Q5MINP PRN IV 11/03/24 23:30 Patient Own Medication 40 mg MWF SC 11/05/24 10:00 11/07/24 10:35 40 MG Dextrose/Sodium Chloride 1,000 ml @ 100 mls/hr Q10H IV 11/04/24 09:15 11/09/24 04:11 100 MLS/HR Ceftriaxone Sodium 50 ml @ 100 mls/hr DAILY@09 IV 11/07/24 09:00 11/08/24 08:27 100 MLS/HR Acetaminophen 650 mg Q6HP PRN [place] 11/06/24 15:30 11/07/24 23:29 650 MG Ibuprofen 600 mg Q6HP PRN GT 11/07/24 09:30 Lorazepam 1 mg ONCE PRN IV 11/08/24 11:30 Laboratory Results Laboratory Tests 11/07/24 03:22 Urinalysis Test 11/03/24 03:00 Urine Color Light-yellow (Yellow) Urine Clarity Clear (Clear) Urine pH 5.5 (5.0-9.0) Urine Specific [place] 1.020 (1.001-1.035) Urine Protein 1+ (Negative) H Urine Ketones 1+ (Negative) H Urine Blood Trace /uL (Negative) H Urine Nitrite Negative (Negative) Urine Bilirubin Negative (Negative) Urine Urobilinogen Normal mg/dL (Negative) Urine Leukocyte Esterase Negative /uL (Negative) Urine RBC 3 /hpf (0 - 3) Urine WBC 2 /hpf (0 - 3) Urine Squamous Epithelial Cells None seen /hpf (<5) Urine Amorphous Crystals Few /hpf (None Seen) Urine Bacteria None seen /hpf (None Seen) Urine Glucose Normal mg/dL (Normal) Microbiology Microbiology Date/Time Source Procedure Growth Status 11/06/24 17:46 Blood Blood Culture - Preliminary NO GROWTH AFTER 48 HOURS OF INCUBATION. Resulted 11/06/24 00:19 Nose MRSA Screen - Final Complete 11/03/24 02:51 Sputum Gram Stain - Final Complete 11/03/24 02:51 Respiratory Culture - Final Klebsiella pneumoniae Complete Labs and/or images reviewed: Labs reviewed by me, Image(s) reviewed by me Assessment/Plan Assessment/Plan Acute hypoxic respiratory failure intubated, extubated on 11/07/[address] Ratliff appreciated Sepsis with the elevated white count possible aspiration pneumonia: Sputum cultures growing Klebsiella pneumoniae, DC Zosyn started on Rocaphin Status epilepticus History of seizures Multiple sclerosis: MRI brain and MRI C-spine confirmed the diagnosis of multiple sclerosis Nicotine dependence Noncompliance CT head negative MRI brain negative except for changes of multiple sclerosis Seen in the med surg Full code Time spent 45 minutes Will DC tomorrow Plan discussed with: Patient Date of Service: Nov 09, 2024 Billing Provider: KARI MURILLO MD Common Visit Codes: [id number] INP/OBS CARE(HIGH) KARI MURILLO MD Nov 09, 2024 09:21
--- NOTE | 2024-11-09 09:34 | DVHPN2 ---
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 He was brought to the [facility] on 11/03/2024 for seizure activity. At this time, he is slight responds to stroke painful stimuli, sedated, intubated, the history is obtained from his sister, and chart review, talking to his nurse I saw him in 07/2013, 10/2013, 10/2014 for MS exacerbation and he received IV Solu-Medrol. I saw her on 04/22/2051 for medication reaction/MS exacerbation I have seen and examined the patient, discussed with his nurse, shelli, he keeps improving, he is still only oriented x2-3, he confirms worsening gait disturbance before he came to the hospital No seizure activity Urinalysis, 11/03/2024: Unremarkable UDS, 11/03/2024: Benzo, cannabinoids ABG, 11/03/2024: Respiratory acidosis CBC, 11/03/2024: Unremarkable WBC/HB/PLT/MCV, 11/04/2024: 15.4/16/184/90.5 CMP, 5 11/03/2024: Unremarkable Lactic acid, 11/03/2024: 5.9 EEG, 11/05/24: Remarkably abnormal EEG Chest x-ray, 11/03/2024: 1. No acute cardiopulmonary disease is seen. 2. Endotracheal tube noted with its distal end located approximately 4.8 cm proximal to the madelaine in appropriate position. 3. Nasogastric tube noted with its distal end below left hemidiaphragm, possibly in stomach, however, the tip is out of field of view. If more precise position of tube is required, suggest x-ray abdomen pre and post injection of 200 cc of air or 60ml of gastrografin. Lungs are clear and well expanded with no pulmonary infiltrate or pleural effusion. CT HEAD, 11/03/2024: No acute intracranial abnormality. MRi HEADACHE, 08/18/2013: Numerous patchy white matter signal abnormalities. Given the clinical history, this is suspicious for multiple sclerosis. Other causes of demyelination cannot be excluded MRI brain w 08/18/13: No enhancing lesions are seen. No evidence of mass MR head, 11/04/2024: 1. Moderate to large areas of confluent T2/FLAIR hyperintense signal in the centrum semiovale and mcnally radiata bilaterally correlating with reported clinical history of multiple sclerosis as detailed above. 2. No abnormal postcontrast enhancement. 3. No definite restricted diffusion in any of the lesions. 4. Paranasal sinus disease as described above MRI C-spine wwo, 11/04/2024: 1. Degenerative disease C4-5 associated with [id number] bilateral neural foraminal stenosis. No significant central canal stenosis. 2. Patchy abnormal cord signal throughout the cervical spine consistent with given history of multiple sclerosis. No abnormal enhancement to suggest active demyelination. Correlate with prior imaging if available to determine stability. Alternatively recommend continued follow-up MRA brain scan, 08/18/13: Unremarkable MRA of the brain vital signs Vital Sign Date Time Temp Pulse Resp B/P (MAP) Pulse Ox O2 Delivery O2 Flow Rate FiO2 11/09/24 09:00 98.4 79 17 128/86 (100) 95 98.4 11/09/24 02:40 0.0 21 11/08/24 22:09 Room Air* Total Intake and Output 11/08/24 11/08/24 11/09/24 15:00 23:00 07:00 Intake Total 100 ml 1250 ml Output Total 575 ml Balance 100 ml 675 ml medications Current Medications Medications Dose Ordered Sig/Lainey Route Start Time Stop Time Status Last Admin Dose Admin Levetiracetam 100 ml @ 400 mls/hr BID IV 11/03/24 10:00 11/08/24 21:34 400 MLS/HR Ondansetron HCl 4 mg Q4HP PRN IV 11/03/24 05:00 Enoxaparin Sodium 40 mg DAILY SC 11/03/24 10:00 11/08/24 09:56 40 MG Nitroglycerin 0.4 mg Q5MINP PRN SL 11/03/24 05:00 Morphine Sulfate 2 mg Q30M PRN IV 11/03/24 05:00 Albuterol 2.5 mg Q6HPRN PRN NEB 11/03/24 05:00 11/05/24 19:51 2.5 MG Lorazepam 1 mg Q5MINP PRN IV 11/03/24 23:30 Patient Own Medication 40 mg MWF SC 11/05/24 10:00 11/07/24 10:35 40 MG Dextrose/Sodium Chloride 1,000 ml @ 100 mls/hr Q10H IV 11/04/24 09:15 11/09/24 04:11 100 MLS/HR Ceftriaxone Sodium 50 ml @ 100 mls/hr DAILY@09 IV 11/07/24 09:00 11/08/24 08:27 100 MLS/HR Acetaminophen 650 mg Q6HP PRN [place] 11/06/24 15:30 11/07/24 23:29 650 MG Ibuprofen 600 mg Q6HP PRN GT 11/07/24 09:30 Lorazepam 1 mg ONCE PRN IV 11/08/24 11:30 objective The patient is well-nourished and well-developed with no distress. MENTAL STATUS: Subjective CRANIAL NERVES: Pupils are equal round and reactive to light briskly, normal external eye movement, normal sensation and motor examination in the lateral trigeminal nerve distribution, no facial weakness. SENSATION: Okay to pinprick and light touch MOTOR: Normal tone in the upper and lower extremity. Normal muscle bulk. No fasciculations. He moves the arms and legs, but right side is weaker REFLEXES: Deep tendon reflexes are symmetrical. No pathological reflexes. CEREBELLAR/COORDINATION: No ataxia GAIT/STATION: deferred laboratory and microbiology Laboratory Tests 11/07/24 03:22 Test 11/07/24 03:22 Range/Units Serum Glucose 124 H 74-106 mg/dL Problem List Status epileptics Grand mal seizure Poor compliance to treatment Multiple sclerosis Gait disturbance since 11/02/2024, to rule out MS exacerbation Assessment/Plan Monitoring Supportive treatment MR brain wwo MRI T-spine wwo Keppra 1000 mg IV b.i.d. Ativan for seizure breakthrough Copaxone 40 mg subQ 3 times weekly DVT prophylaxis Up to chair Physical therapy Will address compliance issue later F/U with Dr. Baez on D/C More recommendation per clinical course This medical document was created using an electronic medical record system with [employer] system. Although this document has been carefully reviewed, there may still be some phonetic and typographical errors. These areas are purely typographical due to imperfections of the software programs, and do not reflect any compromise in the patient's medical care Prognosis poor Dietary Evaluation Review Comments: 1. Wehn medically feasible, offer a regular diet if his glucose is under control, or a CCHO-60 diet for hyperglycemic management. 2. If PO is not possible, and EN is acceptable, offer Jevity 40ml/hr providng 58 gProtein and 1152 kcal. alternatively, for better glucose control, provide glucerna 40ml/hr for the same amount of protein and kcal support. His protein needs needs to be supplemented by adding Clinmix 41ml/hr if remaining on vent. 3. If NPO > 7 days and EN not an option, consider TPN per pharmacy to meet his 75% needs. Expected Outcomes/Goals: Advance to diet. Plan discussed with: Other ИРИНА STEPHENS MD Nov 09, 2024 09:34
--- NOTE | 2024-11-09 13:00 | DVH ---
EXAM: CT HEAD WITHOUT CONTRAST INDICATION: SHORTNESS OF BREATH TECHNIQUE: CT of the head without intravenous contrast. Radiation Dose Information: CT Dose: CTDI volume is 25 mGy. Dose-length product is 250 mGy*cm The dose indicators for CT are the volume Computed Tomography (CT) Dose Index (CTDIvol) and the Dose Length Product (DLP), and are measured in units of mGy and mGy-cm, respectively. These indicators are not patient dose, but values generated from the CT scanner acquisition factors. The report includes radiation exposure data for exposures received during this examination. COMPARISON: MRI CERVICAL WITH CONTRAST on DOS: 11/04/24, MRI BRAIN HEAD WO W CONTRAST on DOS: 4, CT HEAD WITHOUT CONTRAST on DOS: 11/03/24 FINDINGS: There is no evidence of acute intracranial hemorrhage, extra-axial collection, mass effect, midline s hift, herniation or hydrocephalus. The ventricles, sulci and cisterns are age appropriate. The prather-white differentiation is intact. Patchy periventricular and subcortical white matter hypoattenuation is nonspecific but may be related to small vessel ischemic disease. The visualized paranasal sinuses and mastoid air cells are clear. The surrounding soft tissues and osseous structures are unremarkable. IMPRESSION: No acute intracranial abnormality.
[2024-11-09] MEDS ORDERED: GADOTERATE MEG 10 MMOL/20ml INJ (0.5MMOL/ml) IV ONE (15:23)
--- NOTE | 2024-11-09 17:43 | DVH ---
CLINICAL INDICATION: 34 years old, Male; multiple sclerosis. History of seizure. COMPARISON: CT HEAD WITHOUT CONTRAST on DOS: 11/09/24, MRI CERVICAL WITH CONTRAST on DOS: 11/04/24, M RI BRAIN HEAD WO W CONTRAST on DOS: 11/04/24 TECHNIQUE: Multisequence multiplanar MRI images of the brain were obtained prior to and after the une ventful administration of 20 mL of Clariscan contrast. FINDINGS: No acute infarct or hemorrhage. No mass or midline shift. Moderate to marked confluent area s of T2/FLAIR hyperintense signal in the mcnally radiata and centrum semiovale, similar to the previou s MRI. No definite new lesions. No definite restricted diffusion or enhancement in any of the lesion s. Ventricles and sulci are within normal limits. Basal cisterns are patent. Cerebellum, brainstem, a nd midline structures are within normal limits. Mucosal thickening in the paranasal sinuses. Retenti on cysts seen in the maxillary sinuses bilaterally. Orbits are grossly unremarkable. IMPRESSION: 1. Again seen are confluent areas of T2/FLAIR hyperintense signal in the centrum semiovale and mcnally radiata bilaterally, correlating with reported clinical history of multiple sclerosis. No new lesion s. No associated enhancement or restricted diffusion is seen. 2.
--- NOTE | 2024-11-09 17:52 | DVH ---
CLINICAL HISTORY: 34 years old, Male; multiple sclerosis. TECHNIQUE: Multi sequence multi planar MRI images of the thoracic spine were obtained prior to and a fter the uneventful administration of 20 mL Clariscan contrast. COMPARISON: Prior MRI dated 08/16/2024. FINDINGS: Vertebral body alignment is within normal limits. Vertebral body heights are maintained. Posterior elements appear intact. No evidence of acute fracture. Multilevel disc desiccation. Central disc protrusion at T10-T11 causing a mild degree of spinal canal stenosis. No other significant neur al foraminal stenosis. No significant neural foraminal stenosis. Questionable subtle areas of STIR hy perintense signal in the spinal cord on the sagittal STIR sequence, including at the T8-T9 level, alt cata not correlated on the T2 weighted or FLAIR sequences. No abnormal postcontrast enhancement. Par aspinal soft tissues are unremarkable. IMPRESSION: 1. Questionable subtle areas of STIR hyperintense signal in the spinal cord, including at the T8-T9 l evel without correlate on the T2 weighted or FLAIR sequence to confirm demyelinating lesions. 2. No abnormal postcontrast enhancement. 3. Central disc protrusion at T10-T11 causing mild degree of spinal canal stenosis.
[2024-11-10] VITALS (7 sets, daily range): BP systolic 131–134; BP diastolic 67–90; PULSE 67–92; RESP 16–20; TEMP 97.3–98.4; O2SAT 93–96
[2024-11-10] MEDS: TEMAZEPAM 15 MG CAP PO ONE (00:38)
--- NOTE | 2024-11-10 09:19 | DVHPN2 ---
Progress Note - Dictate Date Seen: Nov 10, 2024 Medical Necessity Reason Pt with a Central, PICC or Fol: Yes The following are medically ne: Lopes Catheter Reason for lopes catheter: Strict I&O Subjective Mr Hamilton is a 34 yo male wit h a history of MS, sinclair's palsy. He was brought to the [facility] on 11/03/2024 for seizure activity. At this time, he is slight responds to stroke painful stimuli, sedated, intubated, the history is obtained from his sister, and chart review, talking to his nurse I saw him in 07/2013, 10/2013, 10/2014 for MS exacerbation and he received IV Solu-Medrol. I saw her on 04/22/2051 for medication reaction/MS exacerbation I have seen and examined the patient, discussed with his nurse, shelli, he keeps improving, he is oriented to person, place, he knows year, socially appropriate No seizure activity MRI wwo brain, C-spine, T-spine did not show enhancing lesion Urinalysis, 11/03/2024: Unremarkable UDS, 11/03/2024: Benzo, cannabinoids ABG, 11/03/2024: Respiratory acidosis CBC, 11/03/2024: Unremarkable WBC/HB/PLT/MCV, 11/04/2024: 15.4/16/184/90.5 CMP, 5 11/03/2024: Unremarkable Lactic acid, 11/03/2024: 5.9 EEG, 11/05/24: Remarkably abnormal EEG Chest x-ray, 11/03/2024: 1. No acute cardiopulmonary disease is seen. 2. Endotracheal tube noted with its distal end located approximately 4.8 cm proximal to the madelaine in appropriate position. 3. Nasogastric tube noted with its distal end below left hemidiaphragm, possibly in stomach, however, the tip is out of field of view. If more precise position of tube is required, suggest x-ray abdomen pre and post injection of 200 cc of air or 60ml of gastrografin. Lungs are clear and well expanded with no pulmonary infiltrate or pleural effusion. CT HEAD, 11/03/2024: No acute intracranial abnormality. MRI HEAD, 08/18/2013: Numerous patchy white matter signal abnormalities. Given the clinical history, this is suspicious for multiple sclerosis. Other causes of demyelination cannot be excluded MRI brain w 08/18/13: No enhancing lesions are seen. No evidence of mass MR head, 11/04/2024: 1. Moderate to large areas of confluent T2/FLAIR hyperintense signal in the centrum semiovale and mcnally radiata bilaterally correlating with reported clinical history of multiple sclerosis as detailed above. 2. No abnormal postcontrast enhancement. 3. No definite restricted diffusion in any of the lesions. 4. Paranasal sinus disease as described above MRI head WWO 11/09/2024: 1. Again seen are confluent areas of T2/FLAIR hyperintense signal in the centrum semiovale and mcnally radiata bilaterally, correlating with reported clinical history of multiple sclerosis. No new lesions. No associated enhancement or restricted diffusion is seen MRI C-spine wwo, 11/04/2024: 1. Degenerative disease C4-5 associated with [id number] bilateral neural foraminal stenosis. No significant central canal stenosis. 2. Patchy abnormal cord signal throughout the cervical spine consistent with given history of multiple sclerosis. No abnormal enhancement to suggest active demyelination. Correlate with prior imaging if available to determine stability. Alternatively recommend continued follow-up MRI T-spine, wwo 11/09/2024: 1. Questionable subtle areas of STIR hyperintense signal in the spinal cord, including at the T8-T9 level without correlate on the T2 weighted or FLAIR sequence to confirm demyelinating lesions. 2. No abnormal postcontrast enhancement. 3. Central disc protrusion at T10-T11 causing mild degree of spinal canal stenosis MRA brain scan, 08/18/13: Unremarkable MRA of the brain vital signs Vital Sign Date Time Temp Pulse Resp B/P (MAP) Pulse Ox O2 Delivery O2 Flow Rate FiO2 11/10/24 08:47 98.3 84 17 132/90 (104) 93 98.3 11/10/24 07:46 Room Air* 0 21 Total Intake and Output 11/09/24 11/09/24 11/10/24 15:00 23:00 07:00 Intake Total 200 ml 1425 ml 150 ml Output Total 900 ml Balance 200 ml 1425 ml -750 ml medications Current Medications Medications Dose Ordered Sig/Lainey Route Start Time Stop Time Status Last Admin Dose Admin Levetiracetam 100 ml @ 400 mls/hr BID IV 11/03/24 10:00 11/09/24 21:06 400 MLS/HR Ondansetron HCl 4 mg Q4HP PRN IV 11/03/24 05:00 Enoxaparin Sodium 40 mg DAILY SC 11/03/24 10:00 11/10/24 08:03 40 MG Nitroglycerin 0.4 mg Q5MINP PRN SL 11/03/24 05:00 Morphine Sulfate 2 mg Q30M PRN IV 11/03/24 05:00 Lorazepam 1 mg Q5MINP PRN IV 11/03/24 23:30 Patient Own Medication 40 mg MWF SC 11/05/24 10:00 11/10/24 08:06 40 MG Dextrose/Sodium Chloride 1,000 ml @ 100 mls/hr Q10H IV 11/04/24 09:15 11/10/24 08:04 100 MLS/HR Ceftriaxone Sodium 50 ml @ 100 mls/hr DAILY@09 IV 11/07/24 09:00 11/10/24 08:03 100 MLS/HR Acetaminophen 650 mg Q6HP PRN [place] 11/06/24 15:30 11/07/24 23:29 650 MG Ibuprofen 600 mg Q6HP PRN GT 11/07/24 09:30 Lorazepam 1 mg ONCE PRN IV 11/08/24 11:30 objective The patient is well-nourished and well-developed with no distress. MENTAL STATUS: Subjective CRANIAL NERVES: Pupils are equal round and reactive to light briskly, normal external eye movement, normal sensation and motor examination in the lateral trigeminal nerve distribution, no facial weakness. SENSATION: Okay to pinprick and light touch MOTOR: Normal tone in the upper and lower extremity. Normal muscle bulk. No fasciculations. He moves the arms and legs, but right side is weaker REFLEXES: Deep tendon reflexes are symmetrical. No pathological reflexes. CEREBELLAR/COORDINATION: No ataxia GAIT/STATION: deferred laboratory and microbiology Laboratory Tests 11/07/24 03:22 Test 11/07/24 03:22 Range/Units Serum Glucose 124 H 74-106 mg/dL Problem List Status epileptics Grand mal seizure Mild right hemiparesis Poor compliance to treatment Multiple sclerosis Gait disturbance since 11/02/2024 Assessment/Plan Monitoring Supportive treatment Keppra 1000 mg IV b.i.d. Ativan for seizure breakthrough Copaxone 40 mg subQ 3 times weekly DVT prophylaxis Up to chair Physical therapy Will address compliance issue later F/U with Dr. Baez on D/C More recommendation per clinical course This medical document was created using an electronic medical record system with [employer] dictation system. Although this document has been carefully reviewed, there may still be some phonetic and typographical errors. These areas are purely typographical due to imperfections of the software programs, and do not reflect any compromise in the patient's medical care Prognosis poor Dietary Evaluation Review Comments: 1. Wehn medically feasible, offer a regular diet if his glucose is under control, or a CCHO-60 diet for hyperglycemic management. 2. If PO is not possible, and EN is acceptable, offer Jevity 40ml/hr providng 58 gProtein and 1152 kcal. alternatively, for better glucose control, provide glucerna 40ml/hr for the same amount of protein and kcal support. His protein needs needs to be supplemented by adding Clinmix 41ml/hr if remaining on vent. 3. If NPO > 7 days and EN not an option, consider TPN per pharmacy to meet his 75% needs. Expected Outcomes/Goals: Advance to diet. Plan discussed with: Other ИРИНА STEPHENS MD Nov 10, 2024 09:19
[2024-11-10] MEDS ORDERED: LEVE100012 PO (09:23)
[2024-11-10] MEDS ORDERED: HYDR-4902 PO (09:23)
[2024-11-10] MEDS ORDERED: LEVO500T91 PO (09:23)
--- NOTE | 2024-11-10 09:26 | DVHPN2 ---
Reviewed: Care Plan, H&P, Labs, Medications, Previous Orders, Radiology Changes from previous H/P or p: No Changes Objective Vitals Vital Signs Date Time Temp Pulse Resp B/P (MAP) Pulse Ox O2 Delivery O2 Flow Rate FiO2 11/10/24 08:47 98.3 84 17 132/90 (104) 93 98.3 11/10/24 07:46 Room Air* 0 21 Intake/Output Intake and Output 11/10/24 07:00 Intake Total 1775 ml Output Total 900 ml Balance 875 ml Intake Oral 675 ml IV Total 1100 ml Output Urine Total 900 ml Medications Current Medications Medications Dose Ordered Sig/Lainey Route Start Time Stop Time Status Last Admin Dose Admin Levetiracetam 100 ml @ 400 mls/hr BID IV 11/03/24 10:00 11/09/24 21:06 400 MLS/HR Ondansetron HCl 4 mg Q4HP PRN IV 11/03/24 05:00 Enoxaparin Sodium 40 mg DAILY SC 11/03/24 10:00 11/10/24 08:03 40 MG Nitroglycerin 0.4 mg Q5MINP PRN SL 11/03/24 05:00 Morphine Sulfate 2 mg Q30M PRN IV 11/03/24 05:00 Lorazepam 1 mg Q5MINP PRN IV 11/03/24 23:30 Patient Own Medication 40 mg MWF SC 11/05/24 10:00 11/10/24 08:06 40 MG Dextrose/Sodium Chloride 1,000 ml @ 100 mls/hr Q10H IV 11/04/24 09:15 11/10/24 08:04 100 MLS/HR Ceftriaxone Sodium 50 ml @ 100 mls/hr DAILY@09 IV 11/07/24 09:00 11/10/24 08:03 100 MLS/HR Acetaminophen 650 mg Q6HP PRN [place] 11/06/24 15:30 11/07/24 23:29 650 MG Ibuprofen 600 mg Q6HP PRN GT 11/07/24 09:30 Lorazepam 1 mg ONCE PRN IV 11/08/24 11:30 Laboratory Results Laboratory Tests 11/07/24 03:22 Urinalysis Test 11/03/24 03:00 Urine Color Light-yellow (Yellow) Urine Clarity Clear (Clear) Urine pH 5.5 (5.0-9.0) Urine Specific [place] 1.020 (1.001-1.035) Urine Protein 1+ (Negative) H Urine Ketones 1+ (Negative) H Urine Blood Trace /uL (Negative) H Urine Nitrite Negative (Negative) Urine Bilirubin Negative (Negative) Urine Urobilinogen Normal mg/dL (Negative) Urine Leukocyte Esterase Negative /uL (Negative) Urine RBC 3 /hpf (0 - 3) Urine WBC 2 /hpf (0 - 3) Urine Squamous Epithelial Cells None seen /hpf (<5) Urine Amorphous Crystals Few /hpf (None Seen) Urine Bacteria None seen /hpf (None Seen) Urine Glucose Normal mg/dL (Normal) Microbiology Microbiology Date/Time Source Procedure Growth Status 11/06/24 17:46 Blood Blood Culture - Preliminary NO GROWTH AFTER 72 HOURS OF INCUBATION. Resulted 11/06/24 00:19 Nose MRSA Screen - Final Complete 11/03/24 02:51 Sputum Gram Stain - Final Complete 11/03/24 02:51 Respiratory Culture - Final Klebsiella pneumoniae Complete Labs and/or images reviewed: Labs reviewed by me, Image(s) reviewed by me Assessment/Plan Assessment/Plan Acute hypoxic respiratory failure intubated, extubated on 11/07/2024, pulmonary consult by Dr. Ratliff appreciated Sepsis with the elevated white count possible aspiration pneumonia: Sputum cultures growing Klebsiella pneumoniae,Treated with Rocephin Status epilepticus History of seizures Multiple sclerosis: MRI brain and MRI C-spine confirmed the diagnosis of multiple sclerosis Nicotine dependence Noncompliance CT head negative MRI brain negative except for changes of multiple sclerosis Repeat CT head and repeat MRI brain on 11/09/2024 showed changes of multiple sclerosis no other acute changes Seen in the med surg Full code Time spent 45 minutes Will DC tomorrow Plan discussed with: Patient My Orders Orders - KARI MURILLO MD Procedure Category Date Status Time Regular Diet DIET 11/09/24 Transmitted Lunch * Lay Out Carpenter CONS 11/09/24 Transmitted Consult Head Without Contrast CT 11/09/24 Resulted 11:40 Brain Head Wo W MRI 11/09/24 Resulted Contrast Thoracic Spine Wo W MRI 11/09/24 Resulted Date of Service: Nov 10, 2024 Billing Provider: KARI MURILLO MD Common Visit Codes: [id number] INP/OBS CARE(HIGH) KARI MURILLO MD Nov 10, 2024 09:26
--- NOTE | 2024-11-10 09:30 | DVHDS2 ---
Discharge Summary Date of Admission Nov 03, 2024 at 04:52 Date of Discharge: Nov 10, 2024 Admitting Diagnosis Status epilepticus Wounds: Endotracheal intubation Labs/Diagnostic Data: Laboratory Results Test 11/07/24 10:01 11/07/24 03:22 11/06/24 07:45 11/06/24 03:00 Blood Gas Specimen Type Arterial Blood Gas Sample Site Left radial Blood Gas Patient Temperature 37.0 Arterial Blood Date Drawn [id number] Arterial Blood pH 7.427 (7.350-7.450) Arterial Blood Partial Pressure CO2 34.8 mmHg (35.0-48.0) Arterial Blood Partial Pressure O2 123.5 mmHg (83.0-108.0) Arterial Blood HCO3 22.4 mmol/L (21.0-28.0) Arterial Blood Oxygen Saturation 98.4 % (94.0-98.0) Arterial Blood Base Excess -1.3 mmol/L (-2.0-3.0) Arterial Blood Oxyhemoglobin 97.8 % (94.0-98.0) Arterial Blood Carboxyhemoglobin 0.3 % (0.5-1.5) Arterial Blood Methemoglobin 0.3 % (0.0-1.5) Jeison Test Modified Blood Gas Total Hemoglobin 14.70 g/dL (13.5-17.5) Blood Gas Modality Vent - cpap FiO2 % 35.0 Blood Gas Pressure Support 8 Blood Gas PEEP or CPAP 5.0 White Blood Count 14.4 10^3/uL (4.4-10.8) Red Blood Count 4.62 10^6/uL (4.5-5.90) Hemoglobin 14.4 g/dL (13.5-17.5) Hematocrit 41.7 % (41.0-53.0) Mean Corpuscular Volume 90.2 fL (80.0-100.0) Mean Corpuscular Hemoglobin 31.2 pg (28.0-32.0) Mean Corpuscular Hemoglobin Concent 34.6 g/dL (32.0-36.0) Red Cell Distribution Width 13.5 % (11.8-14.3) Platelet Count 157 10^3/uL (140-450) Mean Platelet Volume 7.4 fL (6.9-10.8) Neutrophils (%) (Auto) 78.1 % (37.0-80.0) Lymphocytes (%) (Auto) 9.2 % (10.0-50.0) Monocytes (%) (Auto) 11.0 % (0.0-12.0) Eosinophils (%) (Auto) 1.5 % (0.0-7.0) Basophils (%) (Auto) 0.2 % (0.0-2.0) Neutrophils # (Auto) 11.3 10 ^3/uL (1.6-8.6) Lymphocytes # (Auto) 1.3 10 ^3/uL (0.4-5.4) Monocytes # (Auto) 1.6 10 ^3/uL (0-1.3) Eosinophils # (Auto) 0.2 10 ^3/uL (0-0.8) Basophils # (Auto) 0 10 ^3/uL (0-0.2) Nucleated Red Blood Cells 0.1 % Sodium Level 144 mmol/L (136-145) Potassium Level 3.5 mmol/L (3.5-5.1) Chloride Level 110 mmol/L (98-107) Carbon Dioxide Level 26 mmol/L (20-31) Anion Gap 8 (5-15) Blood Urea Nitrogen 6 mg/dL (9-23) Creatinine 0.50 mg/dL (0.700-1.30) Glomerular Filtration Rate Calc 139 mL/min (>90) BUN/Creatinine Ratio 12.0 (10.0-20.0) Serum Glucose 124 mg/dL (74-106) Calcium Level 8.8 mg/dL (8.7-10.4) Blood Gas Set Respiration Rate 16.0 Blood Gas Tidal Volume 500.0 Blood Gas Critical Value Read Back Yes Total Bilirubin 0.6 mg/dL (0.2-1.0) Aspartate Amino Transferase (AST) 15 U/L (13-40) Alanine Aminotransferase (ALT) < 9 U/L (7-40) Alkaline Phosphatase 52 U/L (46-116) Total Protein 5.1 g/dL (5.7-8.2) Albumin 3.1 g/dL (3.2-4.8) Test 11/03/24 07:04 11/03/24 03:00 11/03/24 02:58 Lactic Acid Level 1.6 mmol/L (0.4-2.0) Urine Color Light-yellow (Yellow) Urine Clarity Clear (Clear) Urine pH 5.5 (5.0-9.0) Urine Specific [place] 1.020 (1.001-1.035) Urine Protein 1+ (Negative) Urine Ketones 1+ (Negative) Urine Blood Trace /uL (Negative) Urine Nitrite Negative (Negative) Urine Bilirubin Negative (Negative) Urine Urobilinogen Normal mg/dL (Negative) Urine Leukocyte Esterase Negative /uL (Negative) Urine RBC 3 /hpf (0 - 3) Urine WBC 2 /hpf (0 - 3) Urine Squamous Epithelial Cells None seen /hpf (<5) Urine Amorphous Crystals Few /hpf (None Seen) Urine Bacteria None seen /hpf (None Seen) Urine Glucose Normal mg/dL (Normal) Urine Opiates Screen Neg (NEGATIVE) Urine Fentanyl Screen Neg (NEGATIVE) Urine Barbiturates Screen Neg (NEGATIVE) Urine Phencyclidine Screen Neg (NEGATIVE) Urine Amphetamines Screen Neg (NEGATIVE) Urine Benzodiazepines Screen Pos (NEGATIVE) Urine Cocaine Screen Neg (NEGATIVE) Urine Cannabinoids Screen Pos (NEGATIVE) Blood Gas Spontaneous Rate 16 Blood Gas Notified Whom md daniel goss Blood Gas Notified Time [id number] Blood Gas Notified By sara cooper Other Laboratory Tests 11/07/24 03:22 Brief Hx & Hospital Course: 34 year old male with a history of seizures and multiple sclerosis brought in for breakthrough seizures admitted for status epilepticus intubated in the emergency room for airway protection. Stayed in the ICU seen by pulmonology Dr. Ratliff. Patient had possible aspiration pneumonia treated with the Zosyn cultures came positive for Klebsiella pneumoniae changed to Rocephin CT head and MRI brain and MRI C-spine showed changes consistent with a previous diagnosis of multiple sclerosis no acute changes patient was continued on Keppra seen by Neurology Dr. Vilchis. At the time of discharge patient is alert and awake oriented x3. Discharged home on Keppra [place] and Levaquin Prescription sent to the pharmacy. He was advised to follow up with his primary Dr and Dr. Vilchis Consults/Reason for consult Neurology Dr. Vilchis Pulmonology Dr. Ratliff Operations or Procedures Endotracheal intubation CT head MRI brain Condition at Discharge: Fair Final Diagnosis/Problems List Acute hypoxic respiratory failure intubated, extubated on 11/07/2024, pulmonary consult by Dr. Ratliff appreciated Sepsis with the elevated white count possible aspiration pneumonia: Sputum cultures growing Klebsiella pneumoniae,Treated with Rocephin Status epilepticus History of seizures Multiple sclerosis: MRI brain and MRI C-spine confirmed the diagnosis of multiple sclerosis Nicotine dependence Noncompliance CT head negative MRI brain negative except for changes of multiple sclerosis Repeat CT head and repeat MRI brain on 11/09/2024 showed changes of multiple sclerosis no other acute changes Discharge Disposition: Home Discharge Instruct/Medications Diet: Regular Activity: Light activity Follow Up/Referral: Fill prescriptions today and take medications as prescribed Follow up with your primary Dr in one week Follow up with the Neurology Dr. Vilchis in two weeks Medications: Levaquin Keppra [place] Transmitted to the pharmacy Discharge Statement: "Patient was advised to return to the ER or call 911 if any headaches, dizziness, shortness of breath, chest pain, abdominal pain, bleeding, fevers, or worsening of medical condition. Patient was counseled about treatment plan, medications, possible side effects, patientverbalized understanding. All questions were answered to the best of my ability. This discharge took greater then 30 minutes in planning, reviewing documentation, counseling the patient, and discussing with other team members." ASSESSMENT ASSESSMENT Hospital Course Improved Assessment Acute hypoxic respiratory failure intubated, extubated on 11/07/2024, pulmonary consult by Dr. Ratliff appreciated Sepsis with the elevated white count possible aspiration pneumonia: Sputum cultures growing Klebsiella pneumoniae,Treated with Rocephin Status epilepticus History of seizures Multiple sclerosis: MRI brain and MRI C-spine confirmed the diagnosis of multiple sclerosis Nicotine dependence Noncompliance CT head negative MRI brain negative except for changes of multiple sclerosis Repeat CT head and repeat MRI brain on 11/09/2024 showed changes of multiple sclerosis no other acute changes Date of Service: Nov 10, 2024 Billing Provider: KARI MURILLO MD Common Visit Codes: [id number] DISCH DAY >30min KARI MURILLO MD Nov 10, 2024 09:30
== END 2024-11-10 12:30 | disposition home or self-care (01) | DRG 870 ==
LOC: ER 02:26 → EDBD 02:26 → TELE 04:52 → ICU WEST 11-06 00:12 → TELE-EAST 11-07 16:50
PROVIDERS: ADMIT Nurse Practitioner; ATTEND Family Medicine
PROC: 5A1955Z Respiratory Ventilation, Greater than 96 Consecutive Hours (ICD-10-PCS; principal; 2024-11-03)
PROC: 0BH17EZ Insertion of Endotracheal Airway into Trachea, Via Natural or Artificial Opening (ICD-10-PCS; 2024-11-03)
PROC: 06HY33Z Insertion of Infusion Device into Lower Vein, Percutaneous Approach (ICD-10-PCS; 2024-11-03)
PROC: 4A10X4Z Monitoring of Central Nervous Electrical Activity, External Approach (ICD-10-PCS; 2024-11-04)
DX: A41.9 Sepsis, unspecified organism (principal); J15.0 Pneumonia due to Klebsiella pneumoniae; J69.0 Pneumonitis due to inhalation of food and vomit; J96.01 Acute respiratory failure with hypoxia; J15.69 Pneumonia due to other Gram-negative bacteria; E87.29 Other acidosis; G81.91 Hemiplegia, unspecified affecting right dominant side; G40.401 Other generalized epilepsy and epileptic syndromes, not intractable, with status epilepticus; G35 Multiple sclerosis; F17.200 Nicotine dependence, unspecified, uncomplicated; M48.02 Spinal stenosis, cervical region; G93.9 Disorder of brain, unspecified; M48.04 Spinal stenosis, thoracic region; Z91.199 Patient's noncompliance with other medical treatment and regimen due to unspecified reason; Z79.899 Other long term (current) drug therapy
CPT/HCPCS: 31500; 36415; 36556; 36600; 70450; 70553; 71045; 72142; 72157; 80048; 80053; 80307; 81001; 82805; 83605; 85025; 87040; 87070; 87077; 87081; 87186; 87205; 93005; 94002; 94003; 94640; 95819; 96365; 97110; 97116; 97163; 97530; 99291; G0378; J2250; J2543; J2704; J7042